=== PATIENT | female | born 1995 | race Two or more races ===

== ENCOUNTER 2017-05-03 12:35 | Emergency (ER) | payer SELFPAY ==
--- NOTE | 2017-05-03 14:06 | ER Document Report ---
HPI - HPI Patient complains to provider of: Sore throat Onset: This morning Onset/Duration: Sudden Pain Level: 3 Context: 21-year-old smoker woke up with a sore throat and white spots on her tonsils this morning. Hurts to swallow. She is a college student. Chest pain or shortness of breath, no abdominal pain. Some nausea. Associated Symptoms: None Exacerbated by: Other - Swallowing Relieved by: Denies Similar symptoms previously: No Recently seen / treated by doctor: No - ROS ROS below otherwise negative: Yes Systems Reviewed and Negative: Yes All other systems reviewed and negative Past Medical History - General Information source: Patient - Social History Smoking Status: Current Every Day Smoker Frequency of alcohol use: None Drug Abuse: None Lives with: Family Family History: Reviewed & Not Pertinent - Medical History Medical History: Negative Surgical Hx: Negative - Immunizations Immunizations up to date: Yes Vertical Provider Document - CONSTITUTIONAL Agree With Documented VS: Yes Exam Limitations: No Limitations - INFECTION CONTROL TRAVEL OUTSIDE OF THE [place] IN LAST 30 DAYS: No - HEENT HEENT: Normocephalic, Pharyngeal Erythema. negative: Conjuctival Injection, Tympanic Membrane Red Notes: Exudative tonsils, uvula midline no abscess. - NECK Neck: Supple, Lymphadenopathy-Left - Few anterior, Lymphadenopathy-Right - Few anterior - RESPIRATORY Respiratory: Breath Sounds Normal, No Respiratory Distress O2 Sat by Pulse Oximetry: 97 - CARDIOVASCULAR Cardiovascular: Regular Rate, Regular Rhythm - GI/ABDOMEN Gastrointestinal: Abdomen Soft, Abdomen Non-Tender, No Organomegaly - MUSCULOSKELETAL/EXTREMETIES Musculoskeletal/Extremeties: MAEW - NEURO Level of Consciousness: Awake, Alert - DERM Integumentary: Warm, Dry, No Rash Course - Re-evaluation Re-evalutation: 05/03/17 20:36 Late entry rapid strep is negative throat culture pending - Vital Signs Vital signs: Temp Pulse Resp BP Pulse Ox 98.5 F 117 H 16 123/69 97 05/03/17 12:41 05/03/17 12:41 05/03/17 12:41 05/03/17 12:41 05/03/17 12:41 Discharge - Discharge Clinical Impression: Exudative tonsillitis Condition: Good Disposition: HOME, SELF-CARE Instructions: Penicillin V K ([facility]), Sore Throat ([facility]), Tonsillitis ([facility]) Additional Instructions: Plenty of fluids Motrin Tylenol Return to school on Return to the emergency room if worse Penicillin for 10 days You can call for your throat culture result of the rapid strep is negative today Prescriptions: Penicillin V Potassium [Penicillin Vk 500 mg Tablet] 500 mg PO QID #40 tablet Forms: Return to School
[2017-05-03 14:42] VITALS: BP 116/74
== END 2017-05-03 15:36 | disposition home or self-care (01) ==
LOC: ER 12:35
DX: J03.90 Acute tonsillitis, unspecified (principal); R11.0 Nausea; F17.200 Nicotine dependence, unspecified, uncomplicated
CPT/HCPCS: 87070; 87880; 99283

== ENCOUNTER 2017-06-01 18:05 | Emergency (ER) | payer SELFPAY ==
[2017-06-01] MEDS ORDERED: LIDOCAINE 2% VISCOUS SOLN 20 ML UDCUP PO ONE (18:33)
[2017-06-01] MEDS ORDERED: DEXAMETHASONE SOD PHOS INJ 10 MG/1 ML VIAL IM ONE (19:15)
--- NOTE | 2017-06-01 19:16 | ER Document Report ---
HPI - HPI Pain Level: 4 Context: Patient is a 21-year-old female presents emergency department the chief complaint of sore throat. Patient states that this started over the past 2 days. States that she did have a sick contact at home. Admits to previous tonsillitis about a month ago but did not fill her prescription for antibiotics due to concern for cause. States that it resolved on its own. She denies any fevers or chills, difficulty swallowing. She admits to pain but otherwise denies any shortness of breath, difficulty breathing or cough - CONSTITUTIONAL Constitutional: DENIES: Chills - EENT EENT: REPORTS: Sore Throat Past Medical History - Social History Smoking Status: Current Every Day Smoker Chew tobacco use (# tins/day): No Drug Abuse: None Family History: Reviewed & Not Pertinent Patient has suicidal ideation: No Patient has homicidal ideation: No Renal/ Medical History: Denies: Hx Peritoneal Dialysis - Immunizations Immunizations up to date: Yes Vertical Provider Document - CONSTITUTIONAL Agree With Documented VS: Yes Notes: PHYSICAL EXAM GENERAL: Alert, interacts well. HEENT: NCAT, pale conjunctiva, extraocular movements intact, pupils PERRL. external ear normal, no evidence of external auditory canal tenderness, blood/ drainage, cerumen impaction, TM intact without evidence of effusion, bulging, injection, MMM, Uvula midline. Airway patent. Evidence of tonsillar exudate without erythema. no evidence of tonsillar enlargement, peritonsillar abscess, retropharyngeal abscess. LUNGS: Clear to auscultation bilaterally, no wheezes, rales, or rhonchi. No respiratory distress. HEART: Regular rate and rhythm. No murmurs, gallops, or rubs. NEUROLOGICAL: Alert and oriented x4. Normal speech. PSYCH: Normal affect, normal mood. SKIN: Warm, dry, normal turgor. No rashes or lesions noted. - INFECTION CONTROL TRAVEL OUTSIDE OF THE [place] IN LAST 30 DAYS: No Course - Re-evaluation Re-evalutation: Presentation is most consistent with a viral upper respiratory infection. rapid strep negative. Patient is overall well appearance, vitals within normal limits , well-hydrated. Patient denies any headache, neck pain, and has no evidence of meningismus on examination. Lungs are clear bilaterally. No evidence of respiratory distress. Based on clinical exam and history, I do not suspect an acute pneumonia, meningitis, strep pharyngitis, or an acute encephalitis. No laboratory or imaging testing is indicated at this time. Will discharge patient with return precautions and followup recommendations. They are in agreement this plan have verbalized understanding return precautions. Discharge - Discharge Clinical Impression: Sore throat (viral) Condition: Good Disposition: HOME, SELF-CARE Instructions: Acetaminophen, Sore Throat ([facility]), Viral Syndrome ([facility]) [facility]: [facility] [NO [facility]AL MD] - Follow up in 1 week
[2017-06-01 19:34] VITALS: BP 120/81
== END 2017-06-01 19:34 | disposition home or self-care (01) ==
LOC: ER 18:05
DX: J02.9 Acute pharyngitis, unspecified (principal); F17.200 Nicotine dependence, unspecified, uncomplicated
CPT/HCPCS: 99283; 96372; 87070; 87880; J3490; J1100

== ENCOUNTER 2017-07-26 01:03 | Inpatient (IN) | payer SELFPAY ==
[2017-07-26] MEDS ORDERED: DEXAMETHASONE SOD PHOS INJ 10 MG/1 ML VIAL IV ONE (02:19)
[2017-07-26] MEDS ORDERED: KETOROLAC TROMETHAMINE INJ/PF 30 MG/1 ML SDV IV ONE (02:19)
--- NOTE | 2017-07-26 02:24 | ER Document Report ---
ED ENT - General Chief Complaint: Sore Throat Stated Complaint: SORE THROAT Time Seen by Provider: 07/26/17 02:06 Notes: The patient is a 21-year-old female, past medical history seasonal allergies, multiple episodes of tonsillitis, presents with increased sore throat, right- sided facial swelling and difficulty swallowing. She said the symptoms slowly have worsened. Denies fevers, trismus or neck stiffness. TRAVEL OUTSIDE OF THE [place] IN LAST 30 DAYS: No - Related Data Allergies/Adverse Reactions: No Known Allergies Allergy (Verified 06/01/17 18:41) Past Medical History - General Information source: Patient - Social History Smoking Status: Unknown if Ever Smoked Family History: Reviewed & Not Pertinent Renal/ Medical History: Denies: Hx Peritoneal Dialysis - Immunizations Immunizations up to date: Yes Review of Systems - Review of Systems Notes: REVIEW OF SYSTEMS: CONSTITUTIONAL: -fevers, -chills EENT: -eye pain, +difficulty swallowing, -nasal congestion, +sore throat CARDIOVASCULAR: -chest pain, -syncope. RESPIRATORY: -cough, -SOB GASTROINTESTINAL: -abdominal pain, -nausea, -vomiting, -diarrhea GENITOURINARY: -dysuria, -hematuria MUSCULOSKELETAL: -back pain, -neck pain SKIN: -rash or skin lesions. HEMATOLOGIC: -easy bruising or bleeding. LYMPHATIC: +swollen, enlarged glands. NEUROLOGICAL: -altered mental status or loss of consciousness, -headache, - neurologic symptoms PSYCHIATRIC: -anxiety, -depression. ALL OTHER SYSTEMS REVIEWED AND NEGATIVE. Physical Exam - Vital signs Vitals: Temp Pulse Resp BP Pulse Ox 98.9 F 91 H 16 128/83 H 98 07/26/17 01:31 07/26/17 01:31 07/26/17 01:31 07/26/17 01:31 07/26/17 01:31 - Notes Notes: PHYSICAL EXAMINATION: GENERAL: Uncomfortable. HEAD: Atraumatic, normocephalic. EYES: Pupils equal round and reactive to light, extraocular movements intact, sclera anicteric, conjunctiva are normal. ENT: Swelling of bilateral tonsils, right side slightly larger, no discrete abscess seen, white exudate on left tonsil, nares patent. Moist mucous membranes. NECK: Normal range of motion, supple withright anterior lymphadenopathy LUNGS: Breath sounds clear to auscultation bilaterally and equal. No wheezes rales or rhonchi. HEART: Regular rate and rhythm without murmurs ABDOMEN: Soft, nontender, normoactive bowel sounds. No guarding, no rebound. No masses appreciated. EXTREMITIES: Normal range of motion, no pitting or edema. No cyanosis. NEUROLOGICAL: Cranial nerves grossly intact. Normal speech, normal gait. Normal sensory and motor exams. PSYCH: Normal mood, normal affect. SKIN: Warm, Dry, normal turgor, no rashes or lesions noted. Course - Re-evaluation Re-evalutation: Patient arrives with worsening sore throat and painful swallowing. She is able to swallow her secretions and has no trismus. CT obtained to assess for evidence of peritonsillar abscess, but just bilateral tonsillar abscesses were seen. Steroids, anti-inflammatories and antibiotics were started with some improvement of patient's symptoms. 07/26/17 05:[address] Limon (ENT) and he recommends admitting patient with Unasyn q6h, Decadron q6h and IVF. Dr. Tavares will be [employer] attendant at 8am and will evaluate patient for possible drainage. Spoke to Dr. Indra Zarco and he will admit patient to Tele for further evaluation and treatment. - Vital Signs Vital signs: Temp Pulse Resp BP Pulse Ox 98.9 F 91 H 16 128/83 H 98 07/26/17 01:31 07/26/17 01:31 07/26/17 01:31 07/26/17 01:31 07/26/17 01:31 - Laboratory Result Diagrams: 07/26/17 03:19 07/26/17 03:53 Laboratory results interpreted by me: 07/26/17 07/26/17 03:19 03:53 WBC 12.6 H Hgb 11.7 L Hct 35.0 L RDW 15.2 H Seg Neutrophils % 83.9 H Lymphocytes % 7.7 L Absolute Neutrophils 10.6 H Carbon Dioxide 21 L - Diagnostic Test Radiology reviewed: Image reviewed, Reports reviewed Radiology results interpreted by me: CT Soft tissue: Multilobulated fluid collection within an enlarged right palatine tonsil measuring 2.2 x 1.3 x 1.9 cm (Transverse x AP x CC), best seen on image 35 series 2. Smaller ill-defined fluid collection within the left palatine tonsil image 37 measuring measuring 1.2 x 1.2 x 1.3 cm (Transverse x AP x CC). Discharge - Discharge Clinical Impression: Tonsillar abscess Condition: Stable Disposition: ADMITTED INPATIENT Admitting Provider: Merline [facility] Unit Admitted: Telemetry
[2017-07-26 03:31] LABS: ABSOLUTE EOSINOPHILS # (AUTO) 0.1 10^3/uL (0.0-0.6); ABSOLUTE NEUT (AUTO) 10.6 10^3/uL (1.7-8.2); BASOPHILS % (AUTO) 0.2 % (0-2); EOSINOPHILS % (AUTO) 0.5 % (0-6); HEMOGLOBIN 11.7 g/dL (12.0-15.5); LYMPHOCYTES % (AUTO) 7.7 % (13-45); MEAN CORPUSCULAR HEMOGLOBIN 27.8 pg (27.0-33.4); MEAN CORPUSCULAR HGB CONC 33.5 g/dL (32.0-36.0); MEAN CORPUSCULAR VOLUME 83 fl (80-97); MONOCYTES % (AUTO) 7.7 % (3-13); PLATELET COUNT 287 10^3/uL (150-450); RED CELL DISTRIBUTION WIDTH 15.2 % (11.5-14.0); SEGMENTED NEUTROPHILS % (AUTO) 83.9 % (42-78); TOTAL CELLS COUNTED % (AUTO) 100 %; WHITE BLOOD COUNT 12.6 10^3/uL (4.0-10.5)
[2017-07-26] MEDS ORDERED: HYDROMORPHONE HCL INJ/PF 2 MG/ML AMPULE IV ONE (03:35)
[2017-07-26] MEDS ORDERED: LIDOCAINE 2% INJ-PF (20 MG/ML) 10 ML AMPUL NEB ONE (03:38)
[2017-07-26] MEDS: NORMAL SALINE 1000 ML 1,000 ML IV PRN ×2 (03:53→06:00)
--- NOTE | 2017-07-26 04:02 | RADIOLOGY REPORT (SQ) ---
EXAM DATE: 07/26/2017 2:18 AM CDT. PROCEDURE: CT NECK CHEST WITH IV CONTRAST. INDICATION: asymptomatic throat swelling, SOLUTIONS DEVELOPER?. COMPARISON: None. TECHNIQUE: Axial CT images of the neck were obtained after administration of intravenous contrast. Coronal and sagittal reformats were also obtained. This exam was performed according to our departmental dose-optimization program which includes use of Automated Exposure Control, adjustment of the mA and/or kV according to patient size and/or use of iterative reconstruction technique. FINDINGS: Multilobulated fluid collection within an enlarged right palatine tonsil measuring 2.2 x 1.3 x 1.9 cm (Transverse x AP x CC), best seen on image 35 series 2. Smaller ill-defined fluid collection within the left palatine tonsil image 37 measuring measuring 1.2 x 1.2 x 1.3 cm (Transverse x AP x CC) . Lingual tonsils are unremarkable. Mildly enlarged adenoid tonsils. Remainder of the aerodigestive tract is unremarkable. Partially visualized brain demonstrates no significant abnormalities. Patent major neck vessels. Unremarkable orbits. Mild mucosal thickening right-sided ethmoid air cells. Mastoid air cells are clear. Bilateral level two lymphadenopathy. Lung apices are clear. No acute osseous abnormality. IMPRESSION: Lobulated fluid collections within both palatine tonsils, right greater than left, concerning for tonsillar abscesses. Mild lymphadenopathy is likely reactive.
[2017-07-26] MEDS ORDERED: CLINDAMYCIN 600 MG/D5W RTU 600 MG/50 ML RTUPB IV ONE (04:10)
[2017-07-26 04:20] LABS: ALANINE AMINOTRANSFERASE 19 U/L (5-35); ALBUMIN 3.8 g/dL (3.7-5.6); ALKALINE PHOSPHATASE 82 U/L (50-135); ANION GAP 16 (5-19); ASPARTATE AMINO TRANSFERASE 15 U/L (5-30); BILIRUBIN,DIRECT 0.4 mg/dL (0.0-0.4); BILIRUBIN,TOTAL 0.4 mg/dL (0.2-1.3); BLOOD UREA NITROGEN 10 mg/dL (7-20); CALCIUM 9.1 mg/dL (8.4-10.2); CARBON DIOXIDE 21 mmol/L (22-30); CHLORIDE 107 mmol/L (98-107); GLUCOSE 89 mg/dL (75-110); POTASSIUM 3.9 mmol/L (3.6-5.0); SODIUM 143.5 mmol/L (137-145); TOTAL PROTEIN 7.2 g/dL (6.3-8.2)
[2017-07-26] MEDS ORDERED: NORMAL SALINE 1000 ML 1,000 ML IV ONE (05:19)
[2017-07-26] MEDS ORDERED: AMPICILLIN SOD/SULBACTAM 3 GM VIAL IV SCH (05:30)
[2017-07-26] MEDS: DEXAMETHASONE SOD PHOS INJ 10 MG/1 ML VIAL IV SCH ×3 (06:00→22:13)
[2017-07-26] MEDS ORDERED: GLUCAGON,HUMAN RECOMB 1 MG INJ SUBCUT PRN (07:46)
[2017-07-26] MEDS ORDERED: DEXTROSE 40% GEL 15 GM TUBE PO PRN ×2 (07:46)
[2017-07-26] MEDS ORDERED: DEXTROSE 50%-WATER 25 GM/50 ML DISP.SYRIN IV PRN ×2 (07:46)
--- NOTE | 2017-07-26 07:59 | PDOC H&P ---
History of Present Illness Admission Date/PCP: 07/26/17 05:27 Patient complains of: Severe sore throat fever and chills History of Present Illness: JOSE CRUZ CONNELLY is a 21 year old female who was well until about 4 days ago when she developed a sore throat This morning she could not swallow; patient was evaluated in the ED CT of the neck with IV contrast was suggestive of tonsillar abscess ENT consult was obtained over the phone Patient's treatment was initiated with clindamycin Unasyn was added, Patient was subsequently admitted on the hospitalist service with ENT consult for further evaluation and care Past Medical History Medical History: None Past Surgical History Past Surgical History: Reports: None Social History Information Source: Patient Lives with: Family Smoking Status: Current Every Day Smoker Frequency of Alcohol Use: None Hx Recreational Drug Use: No - Advance Directive Resuscitation Status: Full Code Surrogate healthcare decision maker:: Her mother Jose Cruz Family History Family History: None Family History: No significant medical illnesses everyone is healthy Parental Family History Reviewed: Yes Children Family History Reviewed: Yes Sibling(s) Family History Reviewed.: Yes Medication/Allergy Home Medications: No Home Medications 06/01/17 Allergies/Adverse Reactions: No Known Allergies Allergy (Verified 06/01/17 18:41) Review of Systems Constitutional: PRESENT: as per HPI Eyes: ABSENT: visual disturbances Ears: ABSENT: hearing changes Nose, Mouth, and Throat: PRESENT: as per HPI, sore throat Cardiovascular: ABSENT: chest pain, dyspnea on exertion, palpitations Respiratory: ABSENT: cough, dyspnea, sputum Gastrointestinal: ABSENT: abdominal pain, dysphagia, nausea, vomiting Integumentary: ABSENT: pruritus, rash Neurological: ABSENT: abnormal gait, focal weakness, syncope Psychiatric: ABSENT: anxiety, depression Endocrine: ABSENT: cold intolerance Hematologic/Lymphatic: ABSENT: easy bleeding Allergic/Immunologic: PRESENT: seasonal rhinorrhea Physical Exam Vital Signs: Temp Pulse Resp BP Pulse Ox 98.4 F 89 18 101/59 L 95 07/26/17 06:29 07/26/17 06:29 07/26/17 02:15 07/26/17 06:29 07/26/17 06:29 General appearance: PRESENT: mild distress, well-developed, well-nourished Head exam: PRESENT: atraumatic, normocephalic Eye exam: PRESENT: conjunctiva pink, EOMI, PERRLA. ABSENT: scleral icterus Ear exam: PRESENT: normal external ear exam Mouth exam: PRESENT: moist, tongue midline Throat exam: PRESENT: post pharyngeal erythema, other - Posterior pharynx difficult to evaluate as the patient cannot fully open her mouth Neck exam: PRESENT: tenderness, other - Submandible to adenopathies large tender on palpation bilateral. ABSENT: carotid bruit, JVD, lymphadenopathy, thyromegaly Respiratory exam: PRESENT: clear to auscultation amado. ABSENT: rales, rhonchi, wheezes Cardiovascular exam: PRESENT: RRR. ABSENT: diastolic murmur, rubs, systolic murmur Pulses: PRESENT: normal dorsalis pedis pul Vascular exam: PRESENT: normal capillary refill GI/Abdominal exam: PRESENT: normal bowel sounds, soft. ABSENT: distended, guarding, mass, organolmegaly, rebound, tenderness Rectal exam: PRESENT: deferred Extremities exam: PRESENT: full ROM. ABSENT: calf tenderness, clubbing, pedal edema Neurological exam: PRESENT: alert, awake, oriented to person, oriented to place , oriented to time, oriented to situation, CN II-XII grossly intact. ABSENT: motor sensory deficit Psychiatric exam: PRESENT: appropriate affect, normal mood. ABSENT: homicidal ideation, suicidal ideation Skin exam: PRESENT: dry, intact, warm. ABSENT: cyanosis, rash Results Impressions: Soft Tissue Neck CT 07/26/17 02:18 IMPRESSION: Lobulated fluid collections within both palatine tonsils, right greater than left, concerning for tonsillar abscesses. Mild lymphadenopathy is likely reactive. Assessment & Plan - Diagnosis (1) Tonsillar abscess Is this a current diagnosis for this admission?: Yes Plan: We will continue Unasyn Add vancomycin to cover MRSA ENT consult was obtained by ED physician We will keep the patient n.p.o. on IV fluids as she may very well go to the OR for drainage of tonsillar abscess Continue antibiotics Continue Toradol for pain - Time Time Spent: 30 to 50 Minutes
[2017-07-26] MEDS ORDERED: VANCOMYCIN HCL 0 MG in DEXTROSE 5%-WATER 250 ML IV NR (08:00)
[2017-07-26] MEDS ORDERED: KETOROLAC TROMETHAMINE INJ/PF 30 MG/1 ML SDV IV PRN ×2 (08:00→12:00)
[2017-07-26] MEDS ORDERED: AMPICILLIN SOD/SULBACTAM 3 GM VIAL IV ONE ×2 (08:00→09:00)
[2017-07-26] MEDS ORDERED: MORPHINE SULFATE 10 MG/ML INJ IV PRN ×2 (08:01→20:00)
[2017-07-26] MEDS: DEXTROSE 5%-NORMAL SALINE 1,000 ML IV PRN ×2 (08:59→20:02)
--- NOTE | 2017-07-26 09:37 | Progress Note ---
Provider Note Provider Note: Spoke with Dr. Rossy Blair will be in later this evening to I&D tonsillar abscess at the bedside He advises full liquids until 2 PM Then n.p.o. Continue present antibiotics
[2017-07-26] MEDS: FAMOTIDINE INJ/PF 20 MG/2 ML SDV IV SCH ×2 (10:23→22:13)
[2017-07-26] MEDS: AMPICILLIN SODIUM/SULBACTAM NA 3 GM in NORMAL SALINE 100 ML IV SCH ×3 (11:54→23:34)
[2017-07-26] MEDS ORDERED: VANCOMYCIN HCL 1,500 MG in DEXTROSE 5%-WATER 250 ML IV SCH (13:00)
[2017-07-26] MEDS ORDERED: BUPIVACAINE HCL 0.5%-EPI 1:200000 INJ/PF 30 ML VIAL INJ PRN (15:03)
[2017-07-26] MEDS ORDERED: DIPHENHYDRAMINE HCL 50 MG/ML VIAL IV ONE (16:00)
[2017-07-26] MEDS ORDERED: MORPHINE SULFATE 10 MG/ML INJ IV ONE (20:15)
--- NOTE | 2017-07-26 21:10 | CONSULTATION REPORT E ---
Consultation Report NAME: FABIOLA CONNELLY : 1995 AGE: 21Y DATE: 07/26/2017 209 A TO: KORI TAVARES D.O. FROM: FREDI OCONNELL M.D. Requesting Physician REASON FOR CONSULTATION: Hospitalist consult request for ENT evaluation of 21-year-old female with acute tonsillitis and tonsillar abscess as identified on CT neck imaging. HISTORY OF PRESENT ILLNESS: This is a 21-year-old female patient who was seen and evaluated in the [facility] ER overnight and admitted to the hospital by the hospitalist service in the morning for acute tonsillitis with worsening sore throat symptoms over the past week. The patient underwent CT neck imaging with contrast while in the ER and there was a call for a right greater than left peritonsillar/tonsillar abscess process. The patient was administered IV antibiotics and steroids and was admitted to the inpatient service. The patient was already improving after IV fluids, antibiotics, and steroids. There has been no shortness of breath or difficulty breathing. The patient reports a history of acute recurrent tonsillitis requiring antibiotics 2 times within the past 2 months and this third time has been, by far, the worst. PAST MEDICAL HISTORY: Same as above. PAST SURGICAL HISTORY: None. SOCIAL HISTORY: The patient currently smokes on a daily basis. FAMILY HISTORY: No significant areas of concern. MEDICATIONS: No home medications. ALLERGIES: No known drug allergies. REVIEW OF SYSTEMS: CONSTITUTIONAL: Same as above. GENERAL: Same as above. EYES: Unremarkable. EARS: Unremarkable. NOSE, MOUTH AND THROAT: Same as above. CARDIOVASCULAR: Unremarkable. RESPIRATORY: Unremarkable. GASTROINTESTINAL: Unremarkable. SKIN: Unremarkable. NEUROLOGICAL: Unremarkable. ENDOCRINE: Patient with cold intolerance with thyroid workup in progress. HEMATOLOGIC/LYMPHATIC: Unremarkable. ALLERGIC/IMMUNOLOGIC: Patient is with history of numerous allergens, both seasonal and environmental. PHYSICAL EXAMINATION: VITAL SIGNS: Patient is afebrile and with stable vitals and oxygen saturation is in the high 90s on room air. HEAD: Normocephalic, atraumatic. EYES: Extraocular muscles are intact and the conjunctivae are unremarkable. NOSE: With nasal septal deviation and turbinate hypertrophy. MOUTH/ORAL CAVITY: With moist mucous membranes and there is no trismus noted. OROPHARYNX: Patient is with bilateral tonsillar hypertrophy, 3-4+ on the left and 4+ on the right. There are changes on the right concerning for a paratonsillar abscess type process. There is no exudate or purulent noted. There is no tonsillar debris present. NECK: The patient is with enlarged lymphadenopathy which is tender to palpation on the right in the area of the upper neck. LYMPHATICS: Same as above. HEART: Regular rate and rhythm without murmur. LUNGS: Clear to auscultation bilateral. NEUROLOGICAL: Cranial nerves II through XII are grossly intact. The patient is alert and oriented and in no apparent distress. SKIN: Unremarkable in appearance. MUSCULOSKELETAL: No trismus is noted and no TMJ discomfort. LABORATORY: White count greater than 12. RADIOLOGY: CT neck with contrast performed on 07/26/2017 at 2:18 a.m. was reported multi-lobulated fluid collection on the right with enlarged right tonsil and a smaller ill-defined fluid collection within the left tonsil. PROCEDURE PERFORMED: The patient was counseled regarding a right paratonsillar/tonsillar incision and drainage. The risks and complications of the procedures as well as the alternatives and benefits of this type of procedure were discussed in detail. The patient voiced an understanding of the described plan for abscess incision and drainage. After informed consent and admission of right peritonsillar and tonsil Marcaine with epinephrine for local anesthetic, needle aspiration was attempted at multiple locations with approximately 1 mL of purulence aspirated. There was adequate hemostasis noted at the end of the procedure. There were no complications. ASSESSMENT: 1. Acute tonsillitis. 2. Right greater than left tonsil/peritonsillar phlegmon inflammatory change more so than well localized abscess formation. PLAN: 1. The patient is status post a right peritonsillar/tonsillar incision and drainage procedure with limited purulence aspirated. 2. The patient will continue to be managed by the hospitalist service overnight with plan for continued IV antibiotics and steroids. This case has been discussed with the hospitalist staff. 3. The patient can follow up in the [facility] office which both she and her mother voiced an understanding of and desire to do so. 4. Dr. Tavares remains available as needed. DICTATING PHYSICIAN: KORI TAVARES D.O. [id number] PHY#: [id number] ID: [id number] JOB#: [id number] ACCT: [id number] cc:KORI TAVARES D.O. >
[2017-07-27] MEDS: DEXTROSE 5%-NORMAL SALINE 1,000 ML IV PRN (03:05)
[2017-07-27] MEDS ORDERED: ONDANSETRON HCL INJ/PF 4 MG/2 ML SDV IV PRN (04:04)
[2017-07-27] MEDS: AMPICILLIN SODIUM/SULBACTAM NA 3 GM in NORMAL SALINE 100 ML IV SCH (05:36)
[2017-07-27] MEDS: DEXAMETHASONE SOD PHOS INJ 10 MG/1 ML VIAL IV SCH (05:36)
[2017-07-27 06:58] LABS: HEMATOCRIT 34.3 % (36.0-47.0); HEMOGLOBIN 11.1 g/dL (12.0-15.5); MEAN CORPUSCULAR HEMOGLOBIN 27.1 pg (27.0-33.4); MEAN CORPUSCULAR HGB CONC 32.4 g/dL (32.0-36.0); MEAN CORPUSCULAR VOLUME 84 fl (80-97); PLATELET COUNT 301 10^3/uL (150-450); RED BLOOD COUNT 4.11 10^6/uL (3.72-5.28)
[2017-07-27 07:12] LABS: ANION GAP 15 (5-19); BLOOD UREA NITROGEN 6 mg/dL (7-20); CARBON DIOXIDE 18 mmol/L (22-30); CHLORIDE 113 mmol/L (98-107); GLUCOSE 222 mg/dL (75-110); POTASSIUM 4.2 mmol/L (3.6-5.0); SODIUM 145.8 mmol/L (137-145)
[2017-07-27 07:17] LABS: ABSOLUTE LYMPHOCYTES# (MANUAL) 0.5 10^3/uL (0.5-4.7); ABSOLUTE MONOCYTES # (MANUAL) 0.4 10^3/uL (0.1-1.4); ABSOLUTE NEUTROPHILS# (MANUAL) 11.2 10^3/uL (1.7-8.2); BAND NEUTROPHILS % (MANUAL) 1 % (3-5); BASOPHILS % (MANUAL) 0 % (0-2); EOSINOPHILS % (MANUAL) 0 % (0-6); LYMPHOCYTES % (MANUAL) 4 % (13-45); MONOCYTES % (MANUAL) 3 % (3-13); SEGMENTED NEUTROPHILS % (MAN) 92 % (42-78); TOTAL CELLS COUNTED 100
[2017-07-27 07:19] LABS: ANISOCYTOSIS SLIGHT; OVALOCYTES SLIGHT; PLATELET COMMENT ADEQUATE; POIKILOCYTOSIS SLIGHT; TOXIC VACUOLATION PRESENT
[2017-07-27 08:20] VITALS: BP 106/53
--- NOTE | 2017-07-27 13:34 | PDOC DISCHARGE SUMMARY ---
General - Admit/Disc Date/PCP Admission Date/Primary Care Provider: 07/26/17 05:27 Discharge Date: 07/27/17 - Discharge Diagnosis (1) Tonsillar abscess Is this a current diagnosis for this admission?: Yes - Additional Information Resuscitation Status: Full Code Discharge Diet: As Tolerated Discharge Activity: Activity As Tolerated Prescriptions: Clindamycin HCl 300 mg PO TID #30 capsule Home Medications: Fluoxetine HCl [Prozac 20 mg Capsule] 20 mg PO DAILY 07/26/17 Clindamycin HCl 300 mg PO TID #30 capsule 07/27/17 History of Present Illness Patient complains of: Sore throat. hoarseness of voice. Dysphagia History of Present Illness: FABIOLA CONNELLY is a 21 year old female who was well until about 4 days ago when she developed a sore throat This morning she could not swallow; patient was evaluated in the ED CT of the neck with IV contrast was suggestive of tonsillar abscess ENT consult was obtained over the phone Patient's treatment was initiated with clindamycin Unasyn was added, Patient was subsequently admitted on the hospitalist service with ENT consult for further evaluation and care Hospital Course Hospital Course: Right tonsillar peritonsillar abscess Patient was treated with Unasyn, Decadron and vancomycin IV Allergic reaction to vancomycin which was discontinued Patient underwent I&D of the abscess - Dr Anusha JAMISON- With improvement of the dysphagia She was discharged home on clindamycin p.o. after 24 hours of hospitalization Physical Exam Vital Signs: Temp Pulse Resp BP Pulse Ox 98.4 F 74 18 108/54 L 98 07/27/17 08:09 07/27/17 08:09 07/27/17 08:09 07/27/17 08:09 07/27/17 08:09 Intake & Output 07/26/17 07/27/17 07/28/17 00:59 00:59 00:59 Intake Total 1180 2540 Balance 1180 2540 Weight 95.1 kg General appearance: PRESENT: mild distress, well-developed, well-nourished Head exam: PRESENT: atraumatic, normocephalic Eye exam: PRESENT: conjunctiva pink, EOMI, PERRLA. ABSENT: scleral icterus Ear exam: PRESENT: normal external ear exam Mouth exam: PRESENT: moist, tongue midline Throat exam: PRESENT: post pharyngeal erythema, other - Posterior pharynx difficult to evaluate as the patient cannot fully open her mouth Neck exam: PRESENT: tenderness, other - Submandible to adenopathies large tender on palpation bilateral. ABSENT: carotid bruit, JVD, lymphadenopathy, thyromegaly Respiratory exam: PRESENT: clear to auscultation amado. ABSENT: rales, rhonchi, wheezes Cardiovascular exam: PRESENT: RRR. ABSENT: diastolic murmur, rubs, systolic murmur Pulses: PRESENT: normal dorsalis pedis pul Vascular exam: PRESENT: normal capillary refill GI/Abdominal exam: PRESENT: normal bowel sounds, soft. ABSENT: distended, guarding, mass, organolmegaly, rebound, tenderness Rectal exam: PRESENT: deferred Extremities exam: PRESENT: full ROM. ABSENT: calf tenderness, clubbing, pedal edema Neurological exam: PRESENT: alert, awake, oriented to person, oriented to place , oriented to time, oriented to situation, CN II-XII grossly intact. ABSENT: motor sensory deficit Psychiatric exam: PRESENT: appropriate affect, normal mood. ABSENT: homicidal ideation, suicidal ideation Skin exam: PRESENT: dry, intact, warm. ABSENT: cyanosis, rash Results Laboratory Results: 07/27/17 06:24 07/27/17 06:24 07/27/17 07/27/17 06:24 06:24 WBC 12.0 H RBC 4.11 Hgb 11.1 L Hct 34.3 L MCV 84 MCH 27.1 MCHC 32.4 RDW 15.0 H Plt Count 301 Seg Neutrophils % Not Reportable Lymphocytes % Not Reportable Monocytes % Not Reportable Eosinophils % Not Reportable Basophils % Not Reportable Absolute Neutrophils Not Reportable Absolute Lymphocytes Not Reportable Absolute Monocytes Not Reportable Absolute Eosinophils Not Reportable Absolute Basophils Not Reportable Sodium 145.8 H Potassium 4.2 Chloride 113 H Carbon Dioxide 18 L Anion Gap 15 BUN 6 L Creatinine 0.42 L Est GFR ( Amer) > 60 Est GFR (Non-Af Amer) > 60 Glucose 222 H Calcium 9.0 Impressions: Soft Tissue Neck CT 07/26/17 02:18 IMPRESSION: Lobulated fluid collections within both palatine tonsils, right greater than left, concerning for tonsillar abscesses. Mild lymphadenopathy is likely reactive. Qualifiers - * PATIENT BEING DISCHARGED WITH ANY OF THE FOLLOWING DIAGNOSIS: No Plan Discharge Plan: Discharge home Follow up with Dr. Tavares as an outpatient in about a week Time Spent: Greater than 30 Minutes
== END 2017-07-27 08:34 | disposition home or self-care (01) | DRG 134 ==
LOC: ER 01:03 → EH 05:27 → 2N 10:39
PROVIDERS: ADMIT Internal Medicine; ATTEND Internal Medicine
PROC: 0C9PXZZ Drainage of Tonsils, External Approach (ICD-10-PCS; principal; 2017-07-26)
DX: J03.91 Acute recurrent tonsillitis, unspecified (principal); F17.200 Nicotine dependence, unspecified, uncomplicated; R13.10 Dysphagia, unspecified
CPT/HCPCS: 36415; 70491; 80048; 80053; 85025; 86308; 87070; 87880; 96361; 96365; 96375; 99284; J0295; J1100; J1200; J1885; J2270; J3370; J7030; J7060; S0028

== ENCOUNTER 2017-09-05 11:38 | Emergency (ER) | payer MEDICAID ==
[2017-09-05] MEDS ORDERED: METOCLOPRAMIDE HCL INJ/PF 10 MG/2 ML SDV IV ONE ×2 (11:55→16:18)
--- NOTE | 2017-09-05 11:58 | ER Document Report ---
ED Medical Screen (RME) - General Chief Complaint: Vomiting/Diarrhea Stated Complaint: BACK PAIN,VOMITING Time Seen by Provider: 09/05/17 11:51 Notes: RAPID MEDICAL EVALUATION DISCLOSURE I have seen this patient as part of a Rapid Medical Evaluation and, if applicable, placed any initially appropriate orders. The patient will be seen and fully evaluated, including a full history and physical exam, by a provider ( in Main ED or Fast Track) when a room becomes available. 21-year-old female here with complaints of nausea vomiting diarrhea LLQ abdominal pain that started early this morning. The pain radiates from the left lower abdomen straight through to the back. The pain is not worse or improved with anything in particular. She has not tried anything for the symptoms. She does not know of any sick contacts. Does not have any fevers chills dysuria hematuria frequency. EXAM CTAB RRR No Appreciable Abdominal TTP TRAVEL OUTSIDE OF THE [place].S. IN LAST 30 DAYS: No - Related Data Allergies/Adverse Reactions: vancomycin Allergy (Verified 09/05/17 11:41) Past Medical History Renal/ Medical History: Denies: Hx Peritoneal Dialysis Psychiatric Medical History: Reports: Hx Depression - on prozac - Immunizations Immunizations up to date: Yes History of Influenza Vaccine for 11/2016 - 04/2017 Season: Unknown Physical Exam - Vital signs Vitals: Temp Pulse Resp BP Pulse Ox 98.9 F 80 18 128/92 H 99 09/05/17 11:49 09/05/17 11:49 09/05/17 11:49 09/05/17 11:49 09/05/17 11:49 Course - Vital Signs Vital signs: Temp Pulse Resp BP Pulse Ox 98.9 F 80 18 128/92 H 99 09/05/17 11:49 09/05/17 11:49 09/05/17 11:49 09/05/17 11:49 09/05/17 11:49
[2017-09-05 12:39] LABS: ABSOLUTE EOSINOPHILS # (AUTO) 0.1 10^3/uL (0.0-0.6); ABSOLUTE MONOCYTES (AUTO) 0.4 10^3/uL (0.1-1.4); ABSOLUTE NEUT (AUTO) 4.8 10^3/uL (1.7-8.2); BASOPHILS % (AUTO) 0.4 % (0-2); EOSINOPHILS % (AUTO) 1.4 % (0-6); HEMATOCRIT 36.7 % (36.0-47.0); HEMOGLOBIN 12.3 g/dL (12.0-15.5); LYMPHOCYTES % (AUTO) 16.1 % (13-45); MEAN CORPUSCULAR HEMOGLOBIN 27.6 pg (27.0-33.4); MEAN CORPUSCULAR HGB CONC 33.4 g/dL (32.0-36.0); MEAN CORPUSCULAR VOLUME 83 fl (80-97); MONOCYTES % (AUTO) 5.8 % (3-13); PLATELET COUNT 302 10^3/uL (150-450); RED BLOOD COUNT 4.44 10^6/uL (3.72-5.28); RED CELL DISTRIBUTION WIDTH 15.4 % (11.5-14.0); SEGMENTED NEUTROPHILS % (AUTO) 76.3 % (42-78); TOTAL CELLS COUNTED % (AUTO) 100 %; WHITE BLOOD COUNT 6.3 10^3/uL (4.0-10.5)
[2017-09-05] MEDS ORDERED: PROMETHAZINE HCL INJ 25 MG/1 ML VIAL IV ONE (13:03)
[2017-09-05] MEDS ORDERED: MORPHINE SULFATE 10 MG/ML INJ IV ONE (13:04)
[2017-09-05] MEDS ORDERED: NORMAL SALINE 1000 ML 1,000 ML IV ONE ×2 (13:04→17:37)
[2017-09-05 13:06] LABS: ALANINE AMINOTRANSFERASE 24 U/L (5-35); ALBUMIN 4.2 g/dL (3.7-5.6); ALKALINE PHOSPHATASE 70 U/L (50-135); ANION GAP 12 (5-19); ASPARTATE AMINO TRANSFERASE 27 U/L (5-30); BILIRUBIN,DIRECT 0.4 mg/dL (0.0-0.4); BILIRUBIN,TOTAL 0.4 mg/dL (0.2-1.3); BLOOD UREA NITROGEN 11 mg/dL (7-20); CALCIUM 9.1 mg/dL (8.4-10.2); CARBON DIOXIDE 22 mmol/L (22-30); CHLORIDE 110 mmol/L (98-107); GLUCOSE 93 mg/dL (75-110); LIPASE 61.4 U/L (23-300); POTASSIUM 4.3 mmol/L (3.6-5.0); SODIUM 143.5 mmol/L (137-145); TOTAL PROTEIN 7.8 g/dL (6.3-8.2)
[2017-09-05 13:49] LABS: APPEARANCE,URINE CLOUDY; BILIRUBIN,URINE NEGATIVE (NEGATIVE); GLUCOSE, URINE NEGATIVE (NEGATIVE); KETONES,URINE NEGATIVE (NEGATIVE); LEUKOCYTE ESTERASE,URINE MODERATE (NEGATIVE); NITRITE,URINE NEGATIVE (NEGATIVE); PROTEIN,URINE 100 mg/dL (NEGATIVE); URINE SPECIFIC GRAVITY 1.024
[2017-09-05 13:50] LABS: COLOR,URINE DARK YELLOW
[2017-09-05] MEDS ORDERED: CEFTRIAXONE INJ 1000 MG VIAL IV ONE (14:12)
--- NOTE | 2017-09-05 14:46 | RADIOLOGY REPORT (SQ) ---
EXAM DESCRIPTION: CT LTD RENAL STONE PROTOCOL ON COMPLETED DATE/TIME: 09/05/2017 2:16 pm REASON FOR STUDY: left flank pain, uti, n/v COMPARISON: None. TECHNIQUE: CT scan of the abdomen and pelvis performed without intravenous or oral contrast. Images reviewed with lung, soft tissue, and bone windows. Reconstructed coronal and sagittal MPR images revi ewed. All images stored on PACS. All CT scanners at this facility use dose modulation, iterative reconstruction, and/or weight based d osing when appropriate to reduce radiation dose to as low as reasonably achievable (ALARA). [facility]: Dose Right [facility]: CareDose [facility]: Dose Right [facility]: Teradose 4D [facility]: Smart [employer] RADIATION DOSE: CT Rad equipment meets quality standard of care and radiation dose reduction techniq ues were employed. CTDIvol: 11.4 mGy. DLP: 648 mGy-cm.mGy. LIMITATIONS: None. FINDINGS: A 7 mm stone is present in the left ureteropelvic junction, best shown on coronal image 39 and axial image 40. There is moderate left hydronephrosis. Remainder of the left collecting system is nondilated. Elsewhere in the left kidney, multiple 1 to 2 mm upper mid and lower pole calculi are present. No le ft renal masses or cysts. LOWER CHEST: No significant findings. No nodules or infiltrates. NON-CONTRASTED LIVER, SPLEEN, ADRENALS: Evaluation limited by lack of IV contrast. No identified sign ificant masses. PANCREAS: No masses. No peripancreatic inflammatory changes. GALLBLADDER: No identified stones by CT criteria. No inflammatory changes to suggest cholecystitis. RIGHT KIDNEY AND URETER: No suspicious masses. Assessment limited by lack of IV contrast. No signif icant calcifications. No hydronephrosis or hydroureter. LEFT KIDNEY AND URETER: As above AORTA AND RETROPERITONEUM: No aneurysm. No retroperitoneal masses or adenopathy. BOWEL AND PERITONEAL CAVITY: No obvious masses or inflammatory changes. No free fluid. APPENDIX: Normal. PELVIS, BLADDER, AND ABDOMINAL WALL:No abnormal masses. No free fluid. Bladder normal. BONES: No significant findings. OTHER: No other significant finding. IMPRESSION: 7 mm stone in the left ureteropelvic junction causing moderate left hydronephrosis. COMMENT: Quality ID # [id number]: Final reports with documentation of one or more dose reduction techniques (e.g., Automated exposure control, adjustment of the mA and/or kV according to patient size, use of iterative reconstruction technique) TECHNICAL DOCUMENTATION: JOB ID: [id number] [employer]- All Rights Reserved Reading location - IP/workstation name: [facility]-[email or web address]
--- NOTE | 2017-09-05 15:07 | ER Document Report ---
ED GI/ - General Mode of Arrival: Ambulatory Information source: Patient, Relative TRAVEL OUTSIDE OF THE U.S. IN LAST 30 DAYS: No <PILAR GOLDMAN - Last Filed: 09/05/17 18:40> <PAULETTE SANCHEZ - Last Filed: 09/05/17 20:47> - General Chief Complaint: Vomiting/Diarrhea Stated Complaint: BACK PAIN,VOMITING Time Seen by Provider: 09/05/17 11:51 Notes: Patient is a 21-year-old female with no history of kidney stones or ovarian cysts who presents to the ER today for left flank pain radiating around to the left lower quadrant that started just prior to arrival. Patient admits to multiple episodes of nausea and vomiting as well as a few episodes of diarrhea today after the pain began. Patient denies any burning with urination, blood in her urine. She states she has never had sexual intercourse and cannot be . She denies any abnormal vaginal discharge. (PILAR GOLDMAN) - Related Data Allergies/Adverse Reactions: vancomycin Allergy (Verified 09/05/17 11:56) Past Medical History - General Information source: Patient, Parent - Social History Smoking Status: Current Every Day Smoker Chew tobacco use (# tins/day): No Frequency of alcohol use: None Drug Abuse: None Family History: None Patient has suicidal ideation: No Patient has homicidal ideation: No Renal/ Medical History: Denies: Hx Peritoneal Dialysis Psychiatric Medical History: Reports: Hx Depression - on prozac - Immunizations Immunizations up to date: Yes <PILAR GOLDMAN - Last Filed: 09/05/17 18:40> Review of Systems - Review of Systems Constitutional: No symptoms reported EENT: No symptoms reported Cardiovascular: No symptoms reported Respiratory: No symptoms reported Gastrointestinal: See HPI Genitourinary: No symptoms reported Female Genitourinary: No symptoms reported Musculoskeletal: No symptoms reported Skin: No symptoms reported Hematologic/Lymphatic: No symptoms reported Neurological/Psychological: No symptoms reported <PILAR GOLDMAN - Last Filed: 09/05/17 18:40> Physical Exam <PILAR GOLDMAN - Last Filed: 09/05/17 18:40> <PAULETTE SANCHEZ - Last Filed: 09/05/17 20:47> - Vital signs Vitals: Temp Pulse Resp BP Pulse Ox 98.9 F 80 18 128/92 H 99 09/05/17 11:49 09/05/17 11:49 09/05/17 11:49 09/05/17 11:49 09/05/17 11:49 - Notes Notes: PHYSICAL EXAMINATION: GENERAL: Obviously in pain, holding left flank and actively vomiting, and mild acute distress HEAD: Atraumatic, normocephalic. EYES: Pupils equal round and reactive to light, extraocular movements intact, sclera anicteric, conjunctiva are normal. NECK: Normal range of motion, supple without lymphadenopathy LUNGS: CTAB and equal. No wheezes rales or rhonchi. HEART: Regular rate and rhythm without murmurs ABDOMEN: Soft, mild left lower quadrant and suprapubic tenderness. No guarding, no rebound BACK: no vertebral tenderness, normal ROM GI/: Left CVA tenderness EXTREMITIES: Normal range of motion, no pitting edema. No cyanosis. NEUROLOGICAL: Cranial nerves grossly intact. Normal sensory/motor exams. PSYCH: Normal mood, normal affect. SKIN: Warm, Dry, normal turgor, no rashes or lesions noted (PILAR GOLDMAN) Course - Laboratory Result Diagrams: 09/05/17 12:23 09/05/17 12:23 <PILAR GOLDMAN - Last Filed: 09/05/17 18:40> - Laboratory Result Diagrams: 09/05/17 12:23 09/05/17 12:23 <PAULETTE SANCHEZ - Last Filed: 09/05/17 20:47> - Re-evaluation Re-evalutation: 09/05/17 16:28 Patient has 7 mm stone at the ureteropelvic junction with moderate hydronephrosis of the left kidney, urinalysis reveals 61 white blood cells and large blood. He has taken multiple doses of narcotic pain medication and nausea medication to get patient comfortable. Dr. Zarco, urologist from [facility] would not allow me to consult with him, stating "don't even call me if this isn't a catheterized urine" after finding out I got a clean catch on this 21 year old healthy female. Pt has agreed to cath at this time. 09/05/17 18:41, 61 white blood cells seen on urinalysis with large blood, however there are 30 squamous epithelial cells. Patient was to try to get a more straight catheterized reliable urinalysis, however patient did not have any urine in the bladder at that time. IV fluids are pending at this time and we will attempt straight cath again after IV fluids have gone in. (PILAR GOLDMAN) 09/05/17 20:42 Cath urine is unremarkable for acute infection at this time. See new urinalysis results. Urine cultures pending. Patient is an afebrile, well-hydrated, 21-year-old female who presents to the ED with a ureteropelvic stone. Vitals are acceptable without any significant tachycardia, tachypnea, or hypoxia. No other labs or imaging warranted at this time based on H&P. I will send her home with a prescription for morphine, Zofran, and Flomax. Call urologist tomorrow to schedule an appointment for further evaluation and management. Return to the ED with any worsening/ concerning symptoms otherwise as reviewed in discharge. Patient is in agreement. (PAULETTE SANCHEZ) - Vital Signs Vital signs: Temp Pulse Resp BP Pulse Ox 98.9 F 80 9 L 108/69 96 09/05/17 11:49 09/05/17 11:49 09/05/17 19:01 09/05/17 19:01 09/05/17 19:01 - Laboratory Laboratory results interpreted by me: 09/05/17 09/05/17 09/05/17 12:23 12:23 13:21 RDW 15.4 H Chloride 110 H Urine Protein 100 H Urine Ketones Urine Blood LARGE H Urine Urobilinogen 2.0 H Ur Leukocyte Esterase MODERATE H 09/05/17 19:57 RDW Chloride Urine Protein 30 H Urine Ketones 80 H Urine Blood LARGE H Urine Urobilinogen Ur Leukocyte Esterase Discharge <PILAR GOLDMAN - Last Filed: 09/05/17 18:40> <PAULETTE SANCHEZ - Last Filed: 09/05/17 20:47> - Discharge Clinical Impression: Ureteral stone with hydronephrosis Condition: Stable Disposition: HOME, SELF-CARE Instructions: Antinausea Medication ([facility]) Additional Instructions: Push fluids (i.e. water, cranberry juice) Proper hygenic technique Keep the skin clean Tylenol/ibuprofen as needed Take medications as directed F/u with your PCM in 2-3 days for a recheck Call urology tomorrow to schedule an appointment for further evaluation and management Return to the ED with any worsening symptoms and/or development of fever, headache, chest pain, palpitations, syncope, shortness of breath, trouble breathing, abdominal pain, n/v/d, blood in stool/urine, loss of control of bowel /bladder, urinary retention, or other worsening symptoms that are concerning to you. Prescriptions: Morphine Sulfate [Morphine Ir 15 Mg Tablet] 15 mg PO TID #15 tablet Ondansetron [Zofran Odt 4 mg Tablet] 1 - 2 tab PO Q4H PRN #15 tab.rapdis PRN Reason: For Nausea/Vomiting Tamsulosin HCl [Flomax] 0.4 mg PO DAILY #10 cap.er.24h Referrals: ARTI DICKERSON PA-C [Primary Care Provider] - Follow up in 3-5 days [facility] [Provider Group] - 09/07/17
[2017-09-05] MEDS ORDERED: HYDROMORPHONE HCL INJ/PF 2 MG/ML AMPULE IV ONE ×2 (16:18→20:52)
[2017-09-05] MEDS ORDERED: KETOROLAC TROMETHAMINE INJ/PF 30 MG/1 ML SDV IV ONE (16:19)
[2017-09-05 20:30] LABS: APPEARANCE,URINE SLIGHTLY-CLOUDY; BILIRUBIN,URINE NEGATIVE (NEGATIVE); COLOR,URINE YELLOW; GLUCOSE, URINE NEGATIVE (NEGATIVE); KETONES,URINE 80 mg/dL (NEGATIVE); LEUKOCYTE ESTERASE,URINE NEGATIVE (NEGATIVE); NITRITE,URINE NEGATIVE (NEGATIVE); PROTEIN,URINE 30 mg/dL (NEGATIVE); URINE SPECIFIC GRAVITY 1.025; UROBILINOGEN,URINE NEGATIVE mg/dL (<2.0)
[2017-09-05 21:44] VITALS: BP 118/68
== END 2017-09-05 21:44 | disposition home or self-care (01) ==
LOC: ER 11:38
DX: N13.2 Hydronephrosis with renal and ureteral calculous obstruction (principal); R10.32 Left lower quadrant pain; R11.2 Nausea with vomiting, unspecified; R19.7 Diarrhea, unspecified; F17.200 Nicotine dependence, unspecified, uncomplicated
CPT/HCPCS: 96376; 99284; 96361; 51701; 96375; 96365; 36415; 87086; 83690; 84703; 85025; 80053; 81001; 76380; J1885; J2765; J2270; J1170; J2550; J0696; J7030

== ENCOUNTER 2017-09-07 12:50 | Emergency (ER) | payer MEDICAID ==
[2017-09-07] MEDS ORDERED: OXYCODONE-ACETAMINOPHEN 5-325 MG TABLET PO ONE (13:27)
[2017-09-07] MEDS ORDERED: IBUPROFEN 600 MG TABLET PO ONE (13:27)
--- NOTE | 2017-09-07 13:30 | ER Document Report ---
ED GI/ - General Chief Complaint: Flank Pain Stated Complaint: ABDOMINAL PAIN Time Seen by Provider: 09/07/17 13:21 Notes: The patient is a 21-year-old female, past medical history 7 mm stone on the left , presents with increasing pain she tried to call the [place] urology clinic, but no doctors are available. She tried the oral morphine she was prescribed 2 nights ago in the ER, but this is not helping much. She took a Motrin once. Patient says Zofran is helping with her nausea. She denies fevers , increased flank pain, dysuria, diarrhea, constipation or rash. TRAVEL OUTSIDE OF THE U[place] IN LAST 30 DAYS: No - Related Data Allergies/Adverse Reactions: vancomycin Allergy (Verified 09/05/17 11:56) Past Medical History - General Information source: Patient - Social History Smoking Status: Current Every Day Smoker Chew tobacco use (# tins/day): No Frequency of alcohol use: None Drug Abuse: None Family History: None Patient has suicidal ideation: No Patient has homicidal ideation: No Renal/ Medical History: Denies: Hx Peritoneal Dialysis Psychiatric Medical History: Reports: Hx Depression - on prozac - Immunizations Immunizations up to date: Yes Review of Systems - Review of Systems Notes: REVIEW OF SYSTEMS: CONSTITUTIONAL: -fevers, -chills EENT: -eye pain, -difficulty swallowing, -nasal congestion CARDIOVASCULAR: -chest pain, -syncope. RESPIRATORY: -cough, -SOB GASTROINTESTINAL: -abdominal pain, +nausea, -vomiting, -diarrhea GENITOURINARY: -dysuria, -hematuria MUSCULOSKELETAL:+left flank pain, -neck pain SKIN: -rash or skin lesions. HEMATOLOGIC: -easy bruising or bleeding. LYMPHATIC: -swollen, enlarged glands. NEUROLOGICAL: -altered mental status or loss of consciousness, -headache, - neurologic symptoms PSYCHIATRIC: -anxiety, -depression. ALL OTHER SYSTEMS REVIEWED AND NEGATIVE. Physical Exam - Vital signs Vitals: Temp Pulse Resp BP Pulse Ox 98.7 F 70 18 129/90 H 98 09/07/17 13:09 09/07/17 13:09 09/07/17 13:09 09/07/17 13:09 09/07/17 13:09 - Notes Notes: PHYSICAL EXAMINATION: GENERAL: Well-appearing, well-nourished and in no acute distress. HEAD: Atraumatic, normocephalic. EYES: Pupils equal round and reactive to light, extraocular movements intact, sclera anicteric, conjunctiva are normal. ENT: nares patent, oropharynx clear without exudates. Moist mucous membranes. NECK: Normal range of motion, supple without lymphadenopathy LUNGS: Breath sounds clear to auscultation bilaterally and equal. No wheezes rales or rhonchi. HEART: Regular rate and rhythm without murmurs ABDOMEN: Soft, nontender, normoactive bowel sounds. No guarding, no rebound. No masses appreciated. EXTREMITIES: Normal range of motion, no pitting or edema. No cyanosis. NEUROLOGICAL: Cranial nerves grossly intact. Normal speech, normal gait. Normal sensory and motor exams. PSYCH: Normal mood, normal affect. SKIN: Warm, Dry, normal turgor, no rashes or lesions noted. Course - Re-evaluation Re-evalutation: Patient appears well and is nontoxic appearing. She is requesting a different pain medication, since the oral morphine does not seem to help when she is having severe renal colic. Also provided her with follow-up at [facility]. Urine appears contaminated and repeat urine sent after instructions about wiping correctly, but this also appeared contaminated. 2 days ago, she required a cath and her cathed urine did not show any signs of a UTI. Spoke to patient about obtaining another cath, but she declines at this time. Culture sent of her urine. Since she appears nontoxic, is not having any fevers and is not having any current renal colic pain in the ER, do not suspect a septic stone at this time. Patient given extremely strict return precautions and she understands. - Vital Signs Vital signs: Temp Pulse Resp BP Pulse Ox 98.7 F 66 18 112/71 98 09/07/17 15:43 09/07/17 15:43 09/07/17 13:09 09/07/17 15:43 09/07/17 15:43 - Laboratory Laboratory results interpreted by me: 09/07/17 13:15 Urine Ketones TRACE H Urine Blood MODERATE H Ur Leukocyte Esterase LARGE H Discharge - Discharge Clinical Impression: Renal colic on left side Condition: Stable Disposition: HOME, SELF-CARE Additional Instructions: Follow-up with the [facility] urology group. Address: [facility] , [place] [address] KIDNEY STONE: You are passing or have passed a kidney stone. These stones are usually due to increased calcium or uric acid concentrations in your urine. Stones within the kidney itself are not painful. The pain occurs as the stone leaves the kidney to pass down the long tube, called the ureter, leading to the bladder. If the stone is small, it will usually pass by itself. Most patients can pass the stone at home. You will usually receive medications for pain, nausea or vomiting, and sometimes a medication to assist in passing the kidney stone. However, if the pain is very severe or if vomiting prevents you from taking oral pain medications, you may need to return for further treatment. Drink three or four quarts of fluids per day. You will be given pain medication (if needed) and urine strainers. Strain all your urine to see if the stone passes. If your doctor has asked you to bring the stone in for analysis, return with the stone once it has passed. Return if pain or vomiting become severe, if you develop a high fever, if you are unable to pass your urine, or if other unusual symptoms occur. ANTINAUSEA MEDICATION: You have been given a medication to suppress nausea and vomiting. This type of medication can be given as a shot, pill, or suppository. It will usually last for many hours. Pills and shots usually last six to eight hours, suppositories last about 12 hours. For the typical illness, only one or two doses of the medication may be necessary. Mild lightheadedness may occur. This type of medicine can cause drowsiness. Do not drive or operate dangerous machinery while under its influence. Do not mix with alcohol. See your doctor at once if you have muscle spasms or tightness, or uncontrollable motions (particularly of the neck, mouth, or jaw). Persistent vomiting or severe lightheadedness should also be evaluated by the physician. ORAL NARCOTIC MEDICATION: You have been given a prescription for pain control. This medication is a narcotic. It's best taken with food, as nausea can result if taken on an empty stomach. Don't operate machinery or drive within six hours of taking this medication. Do not combine this medicine with alcohol, or with any medication which can cause sedation (such as cold tablets or sleeping pills) unless you get permission from the physician. Narcotics tend to cause constipation. If possible, drink plenty of fluids and eat a diet high in fiber and fruits. Please be aware that prescription narcotics also have the potential for abuse. People become addicted to these medications because of the general sense of wellbeing that they induce. This feeling along with a significant reduction in tension, anxiety, and aggression provides a stimulating seductive quality to these drugs. Once your pain is under control, we encourage you to discard your unused narcotics. FLOMAX (tamsulosin): Flomax is a medicine that shrinks the prostate gland. It helps relieve symptoms of benign prostatic hypertrophy, such as frequent urination, weak stream, and inadequate emptying. It has been shown to dilate the ureter (tube leading from the kidney to the bladder) and help in passing kidney stones Flomax usually causes no side effects. You may notice slight tiredness and dizziness for a few days. Some patients develop nasal congestion. Rarely, impotence can occur. If the symptoms are bothersome and don't improve with continued use, call your doctor. Contact your doctor or return if you have fainting spells, severe weakness or dizziness, shortness of breath, or rash. FOLLOW-UP CARE: If you have been referred to a physician for follow-up care, call the physician s office for an appointment as you were instructed or within the next two days. If you experience worsening or a significant change in your symptoms, notify the physician immediately or return to the Emergency Department at any time for re-evaluation. Prescriptions: Ondansetron [Zofran Odt 4 mg Tablet] 1 - 2 tab PO Q4H PRN #15 tab.rapdis PRN Reason: For Nausea/Vomiting Oxycodone HCl/Acetaminophen [Percocet 5-325 mg Tablet] 1 - 2 tab PO Q4H PRN #15 tablet PRN Reason: Forms: Elevated Blood Pressure Referrals: KORI COX DO [ASSOCIATE] - Follow up as needed
[2017-09-07 13:43] LABS: APPEARANCE,URINE SLIGHTLY-CLOUDY; BILIRUBIN,URINE NEGATIVE (NEGATIVE); COLOR,URINE YELLOW; GLUCOSE, URINE NEGATIVE (NEGATIVE); KETONES,URINE TRACE mg/dL (NEGATIVE); LEUKOCYTE ESTERASE,URINE LARGE (NEGATIVE); NITRITE,URINE NEGATIVE (NEGATIVE); PROTEIN,URINE NEGATIVE (NEGATIVE); UROBILINOGEN,URINE NEGATIVE mg/dL (<2.0)
[2017-09-07 15:45] VITALS: BP 112/71
== END 2017-09-07 15:45 | disposition home or self-care (01) ==
LOC: ER 12:50
DX: N23 Unspecified renal colic (principal); F17.200 Nicotine dependence, unspecified, uncomplicated; Z88.3 Allergy status to other anti-infective agents
CPT/HCPCS: 99283; 81025; 81001; J3490

== ENCOUNTER → 2017-09-07 | Outpatient (CLI) | payer MEDICAID ==
[2017-09-07 15:17] LABS: APPEARANCE,URINE SLIGHTLY-CLOUDY; BILIRUBIN,URINE NEGATIVE (NEGATIVE); COLOR,URINE YELLOW; GLUCOSE, URINE NEGATIVE (NEGATIVE); KETONES,URINE 20 mg/dL (NEGATIVE); LEUKOCYTE ESTERASE,URINE MODERATE (NEGATIVE); NITRITE,URINE NEGATIVE (NEGATIVE); PROTEIN,URINE NEGATIVE (NEGATIVE); URINE SPECIFIC GRAVITY 1.012; UROBILINOGEN,URINE NEGATIVE mg/dL (<2.0)
== END ==
LOC: LAB 11:52
PROVIDERS: ATTEND Otolaryngology
DX: E07.89 Other specified disorders of thyroid (principal)
CPT/HCPCS: 36415; 81001; 84439; 84443

== ENCOUNTER 2018-03-06 07:37 | Emergency (ER) | payer SELFPAY ==
[2018-03-06] MEDS ORDERED: DEXAMETHASONE 4 MG TABLET PO ONE (08:41)
[2018-03-06] MEDS ORDERED: IBUPROFEN 800 MG TABLET PO ONE (08:41)
[2018-03-06] MEDS ORDERED: PENICILLIN G BENZATHINE 1.2 MILLION UNIT/2 ML DISP.SYRIN IM ONE (08:41)
[2018-03-06] MEDS ORDERED: LIDOCAINE 2% VISCOUS SOLN 20 ML UDCUP PO ONE (08:41)
--- NOTE | 2018-03-06 08:43 | ER Document Report ---
HPI - HPI Patient complains to provider of: Sore throat Time Seen by Provider: 03/06/18 08:09 Onset: Other - 2 days Onset/Duration: Worse Quality of pain: Achy Pain Level: 5 Context: Patient presents complaining of sore throat headache and ear pain for the past 2 days. Patient states that she is seen her ENT doctor in the past and was told that with the next throat infection she had she should have her tonsils removed. Patient expects to have her tonsils taken out today. Associated Symptoms: Earache, Sore throat. denies: Nonproductive cough, Fever, Rhinnorhea Exacerbated by: Denies Relieved by: Denies Similar symptoms previously: Yes Recently seen / treated by doctor: No - ROS ROS below otherwise negative: Yes Systems Reviewed and Negative: Yes All other systems reviewed and negative - CONSTITUTIONAL Constitutional: DENIES: Fever - EENT EENT: REPORTS: Sore Throat, Ear Pain - NEURO Neurology: REPORTS: Headache - RESPIRATORY Respiratory: DENIES: Trouble Breathing, Coughing - GASTROINTESTINAL Gastrointestinal: DENIES: Nausea, Patient vomiting - REPRODUCTIVE Reproductive: DENIES: : - MUSCULOSKELETAL Musculoskeletal: DENIES: Back Pain, Neck Pain - DERM Skin Color: Normal Skin Problems: None Past Medical History - General Information source: Patient - Social History Smoking Status: Current Every Day Smoker Chew tobacco use (# tins/day): No Smoking Education Provided: Yes Frequency of alcohol use: None Drug Abuse: None Occupation: Call center Lives with: Family Family History: None Patient has suicidal ideation: No Patient has homicidal ideation: No Renal/ Medical History: Denies: Hx Peritoneal Dialysis Psychiatric Medical History: Reports: Hx Depression - on prozac Surgical Hx: Negative - Immunizations Immunizations up to date: Yes Vertical Provider Document - CONSTITUTIONAL Agree With Documented VS: Yes Exam Limitations: No Limitations General Appearance: WD/WN, No Apparent Distress - INFECTION CONTROL TRAVEL OUTSIDE OF THE [place] IN LAST 30 DAYS: No - HEENT HEENT: Atraumatic, Normocephalic, Pharyngeal Exudate, Pharyngeal Tenderness, Pharyngeal Erythema. negative: Tympanic Membrane Red, Tympanic Membrane Bulging - NECK Neck: Lymphadenopathy-Left, Lymphadenopathy-Right - RESPIRATORY Respiratory: Breath Sounds Normal, No Respiratory Distress - CARDIOVASCULAR Cardiovascular: Regular Rhythm, No Murmur, Tachycardia - 104 - GI/ABDOMEN Gastrointestinal: Abdomen Soft - BACK Back: Normal Inspection - MUSCULOSKELETAL/EXTREMETIES Musculoskeletal/Extremeties: MAEW, FROM, Non-Tender - NEURO Level of Consciousness: Awake, Alert, Appropriate Motor/Sensory: No Motor Deficit - DERM Integumentary: Warm, Dry, No Rash Course - Re-evaluation Re-evalutation: 03/06/18 Patient able to manage oral secretion. No concern for peritonsillar abscess. Patient has been taking oral fluids without difficulty during her ER stay. Additional IV fluids given for hydration. Patient stable for discharge. Patient encouraged to follow-up with her ENT doctor for elective tonsillectomy. life care planner to bedside to discuss additional outpatient resources. - Vital Signs Vital signs: Temp Pulse Resp BP Pulse Ox 98.3 F 112 H 20 119/82 100 03/06/18 07:53 03/06/18 07:53 03/06/18 07:53 03/06/18 07:53 03/06/18 07:53 Discharge - Discharge Clinical Impression: Tonsillitis Condition: Stable Disposition: HOME, SELF-CARE Instructions: Corticosteroid Medication ([facility]), Use of [id number] Ibuprofen ([facility]), Tonsillitis ([facility]) Additional Instructions: Return immediately for any new or worsening symptoms Followup with your primary care provider, call tomorrow to make a followup appointment Prescriptions: Naproxen [Naprosyn 250 Nmg Tablet] 1 tab PO BID #14 tablet Forms: Smoking Cessation Education, Return to Work Referrals: KORI COX DO [ASSOCIATE] - Follow up tomorrow
[2018-03-06] MEDS ORDERED: NORMAL SALINE 1000 ML 1,000 ML IV ONE (09:33)
[2018-03-06 11:25] VITALS: BP 112/69
== END 2018-03-06 11:25 | disposition home or self-care (01) ==
LOC: ER 07:37
DX: J03.90 Acute tonsillitis, unspecified (principal); R51 Headache; H92.09 Otalgia, unspecified ear; F17.200 Nicotine dependence, unspecified, uncomplicated
CPT/HCPCS: 99283; 96372; 96360; 87070; J3490; J0561; J7030

== ENCOUNTER 2018-05-28 12:03 | Emergency (ER) | payer SELFPAY ==
[2018-05-28 12:13] VITALS: BP 123/80
[2018-05-28] MEDS ORDERED: DIPH/PERTUSS(ACELL)/TETANUS VAC/PF 0.5 ML SYR (>=10YO) IM ONE (14:01)
--- NOTE | 2018-05-28 14:03 | ER Document Report ---
ED Medical Screen (RME) - General Chief Complaint: Hand Pain Stated Complaint: HAND INJURY Time Seen by Provider: 05/28/18 14:01 Mode of Arrival: Ambulatory Information source: Patient TRAVEL OUTSIDE OF THE [place] IN LAST 30 DAYS: No - HPI Patient complains to provider of: R arm lac Onset: Just prior to arrival - pt. cut R hand on broken mirror at home. Tet- OOD - Related Data Allergies/Adverse Reactions: vancomycin Allergy (Verified 05/28/18 12:07) Past Medical History Renal/ Medical History: Denies: Hx Peritoneal Dialysis Psychiatric Medical History: Reports: Hx Depression - on prozac - Immunizations Immunizations up to date: Yes History of Influenza Vaccine for 11/2016 - 04/2017 Season: Unknown Physical Exam - Vital signs Vitals: Temp Pulse Resp BP Pulse Ox 98.5 F 94 12 123/80 98 05/28/18 12:12 05/28/18 12:12 05/28/18 12:12 05/28/18 12:12 05/28/18 12:12 Course - Vital Signs Vital signs: Temp Pulse Resp BP Pulse Ox 98.5 F 94 12 123/80 98 05/28/18 12:12 05/28/18 12:12 05/28/18 12:12 05/28/18 12:12 05/28/18 12:12
[2018-05-28] MEDS ORDERED: LIDOCAINE 1% INJ-PF (10 MG/ML) 30 ML SDV INJ ONE (14:46)
--- NOTE | 2018-05-28 15:45 | ER Document Report ---
Addendum entered and electronically signed by JUSTIN FRAUSTO FNP 06/08/18 07:55: Procedures - Laceration/Wound Repair Right proximal knuckle Wound length (cm): 1 Wound's Depth, Shape: Superficial, Linear Laceration pre-procedure: Sterile PPE donned, Shur-Clens applied Anesthetic type: 1% Lidocaine Volume Anesthetic (mLs): 3 Wound explored: Clean, No foreign body removed Irrigated w/ Saline (mLs): 10 Wound Repaired With: Sutures Suture Size/Type: 5:0, Nylon Number of Sutures: 2 Layer Closure?: No Post-procedure wound care: Sterile dressing applied Post-procedure NV exam normal: Yes Complications: No Original Note: HPI - HPI Time Seen by Provider: 05/28/18 14:01 Pain Level: Denies Context: Patient is a 22-year-old female who presents emergency department with a laceration to her right knuckle at the proximal phalangeal and metacarpal joint. She states that she cut her knuckle on a mirror. Denies any jagged edges. She was immunized with her tetanus vaccine in triage. Denies any past medical history. This happened shortly prior to arrival. - CONSTITUTIONAL Constitutional: DENIES: Fever, Chills - EENT EENT: DENIES: Sore Throat, Ear Pain, Eye problems - NEURO Neurology: DENIES: Headache, Weakness, Vision blurred, Dizzinesss / Vertigo - CARDIOVASCULAR Cardiovascular: DENIES: Chest pain - RESPIRATORY Respiratory: DENIES: Trouble Breathing, Coughing - GASTROINTESTINAL Gastrointestinal: DENIES: Abdominal Pain, Black / Bloody Stools - URINARY Urinary: DENIES: Dysuria, Urgency, Frequency - REPRODUCTIVE Reproductive: DENIES: : - MUSCULOSKELETAL Musculoskeletal: DENIES: Extremity pain Past Medical History - General Information source: Patient - Social History Smoking Status: Unknown if Ever Smoked Family History: None Patient has suicidal ideation: No Patient has homicidal ideation: No Renal/ Medical History: Denies: Hx Peritoneal Dialysis Psychiatric Medical History: Reports: Hx Depression - on prozac - Immunizations Immunizations up to date: Yes Vertical Provider Document - CONSTITUTIONAL Agree With Documented VS: Yes Exam Limitations: No Limitations General Appearance: No Apparent Distress - INFECTION CONTROL TRAVEL OUTSIDE OF THE [place] IN LAST 30 DAYS: No - HEENT HEENT: Atraumatic, Normocephalic - NECK Neck: Normal Inspection - RESPIRATORY Respiratory: No Respiratory Distress - CARDIOVASCULAR Cardiovascular: Regular Rate Pulses: Normal: Radial - MUSCULOSKELETAL/EXTREMETIES Musculoskeletal/Extremeties: FROM, Tender - Right third knuckle - NEURO Level of Consciousness: Awake, Alert, Appropriate Motor/Sensory: No Motor Deficit, No Sensory Deficit - DERM Integumentary: Warm, Dry, Laceration - Right third knuckle Course - Re-evaluation Re-evalutation: 05/28/18 15:45 Patient is able to move all phalanges with strong flexion and extension. Do not suspect she has any tendon injury. 3 stitches were placed to her laceration. She tolerated the procedure well. She will follow-up with her primary care provider to have her stitches removed. She will be started on Keflex for prophylactic antibiotic treatment. Verbal discharge instructions were given to the patient. They verbalized understanding. They are stable for discharge. - Vital Signs Vital signs: Temp Pulse Resp BP Pulse Ox 98.5 F 94 12 123/80 98 05/28/18 12:12 05/28/18 12:12 05/28/18 12:12 05/28/18 12:12 05/28/18 12:12 Discharge - Discharge Clinical Impression: Laceration Condition: Stable Disposition: HOME, SELF-CARE Instructions: Antibiotic Ointment Protection ([facility]), Laceration Care ([facility]), Prophylactic Antibiotic ([facility]), Soap Cleansing ([facility]), Tetanus Immunization Given ([facility]) Additional Instructions: Please return to your primary doctor, the ED, or an urgent care in 7 days for suture removal. Return immediately if you develop spreading redness around the wound, pus from the wound, worsening pain, or a fever of >100.4. Keep the area clean and dry. Wash gently with soap and water twice daily and cover with antibiotic ointment. Have been sent home with antibiotics to prevent infection. Please finish all your medications as prescribed. Prescriptions: Cephalexin Monohydrate [Keflex 500 mg Capsule] 500 mg PO Q6H 5 Days #20 capsule
== END 2018-05-28 15:56 | disposition home or self-care (01) ==
LOC: ER 12:03
DX: S61.411A Laceration without foreign body of right hand, initial encounter (principal); W26.8XXA Contact with other sharp object(s), not elsewhere classified, initial encounter; Z23 Encounter for immunization
CPT/HCPCS: 99283; 90471; 90715; 12001; J3490

== ENCOUNTER 2018-07-12 08:25 | Emergency (ER) | payer SELFPAY ==
[2018-07-12 09:14] LABS: ABSOLUTE EOSINOPHILS # (AUTO) 0.2 10^3/uL (0.0-0.6); ABSOLUTE LYMPHOCYTES (AUTO) 0.9 10^3/uL (0.5-4.7); ABSOLUTE MONOCYTES (AUTO) 0.2 10^3/uL (0.1-1.4); BASOPHILS % (AUTO) 0.6 % (0-2); EOSINOPHILS % (AUTO) 4.7 % (0-6); HEMOGLOBIN 12.8 g/dL (12.0-15.5); LYMPHOCYTES % (AUTO) 21.1 % (13-45); MEAN CORPUSCULAR HEMOGLOBIN 26.7 pg (27.0-33.4); MEAN CORPUSCULAR HGB CONC 32.8 g/dL (32.0-36.0); MEAN CORPUSCULAR VOLUME 81 fl (80-97); MONOCYTES % (AUTO) 5.3 % (3-13); PLATELET COUNT 275 10^3/uL (150-450); RED BLOOD COUNT 4.79 10^6/uL (3.72-5.28); RED CELL DISTRIBUTION WIDTH 14.9 % (11.5-14.0); SEGMENTED NEUTROPHILS % (AUTO) 68.3 % (42-78); TOTAL CELLS COUNTED % (AUTO) 100 %; WHITE BLOOD COUNT 4.4 10^3/uL (4.0-10.5)
[2018-07-12] MEDS ORDERED: ONDANSETRON HCL INJ/PF 4 MG/2 ML SDV IV ONE (09:21)
--- NOTE | 2018-07-12 09:23 | ER Document Report ---
ED GI/ - General Chief Complaint: Flank Pain Stated Complaint: FLANK PAIN Time Seen by Provider: 07/12/18 09:14 Primary Care Provider: [facility] [Provider Group] - Follow up tomorrow ARTI DICKERSON PA-C [Primary Care Provider] - Follow up as needed Mode of Arrival: Ambulatory Information source: Patient Notes: Patient presents complaining of the right flank pain that started today. Patient reports having dysuria symptoms for the past week. Patient reports having nausea and vomiting x1 episode today. No fever patient does have a history of kidney stones and suspects the same today. Patient states she had severe pain at home although currently denies any flank pain at this time. TRAVEL OUTSIDE OF THE [place] IN LAST 30 DAYS: No - HPI Patient complains to provider of: Flank pain, Vomiting Onset: This morning Timing/Duration: Gradual Severity at maximum: Severe Severity in ED: None Pain Level: Denies Location: Right flank Vaginal bleeding (Compared to normal period): Similar Sexual history: Active Associated symptoms: Dysuria, Nausea, Vomiting. denies: Fever Exacerbated by: Denies Relieved by: Denies Similar symptoms previously: Yes Recently seen / treated by doctor: No - Related Data Allergies/Adverse Reactions: vancomycin Allergy (Verified 07/12/18 08:26) Past Medical History - General Information source: Patient - Social History Smoking Status: Never Smoker Smoking Education Provided: Yes Frequency of alcohol use: None Drug Abuse: None Occupation: Painting Family History: None Patient has suicidal ideation: No Patient has homicidal ideation: No Renal/ Medical History: Reports: Hx Kidney Stones. Denies: Hx Peritoneal Dialysis Psychiatric Medical History: Reports: Hx Anxiety, Hx Depression - on prozac - Immunizations Immunizations up to date: Yes Review of Systems - Review of Systems Constitutional: No symptoms reported. denies: Fever EENT: No symptoms reported Cardiovascular: No symptoms reported. denies: Chest pain Respiratory: No symptoms reported. denies: Cough, Short of breath Gastrointestinal: Nausea, Vomiting. denies: Abdominal pain Genitourinary: Dysuria, Flank pain Female Genitourinary: No symptoms reported Musculoskeletal: Back pain Skin: No symptoms reported Hematologic/Lymphatic: No symptoms reported Neurological/Psychological: No symptoms reported Physical Exam - Vital signs Vitals: Temp Pulse BP Pulse Ox 97.9 F 68 118/80 99 07/12/18 08:31 07/12/18 08:31 07/12/18 08:31 07/12/18 08:31 - General General appearance: Appears well, Alert In distress: None - HEENT Head: Normocephalic Eyes: Normal Conjunctiva: Normal Nasal: Normal Mouth/Lips: Normal Mucous membranes: Normal Neck: Normal, Supple - Respiratory Respiratory status: No respiratory distress Chest status: Nontender Breath sounds: Normal. No: Rales, Rhonchi, Stridor, Wheezing Chest palpation: Normal - Cardiovascular Rhythm: Regular Heart sounds: S1 appreciated, S2 appreciated Murmur: No - Abdominal Inspection: Morbidly Obese Distension: No distension Bowel sounds: Normal Tenderness: Nontender Organomegaly: No organomegaly - Back Back: Normal, Nontender. No: CVA tenderness, Vertebra tenderness - Extremities General upper extremity: Normal inspection, Normal ROM General lower extremity: Normal inspection, Normal ROM - Neurological Neuro grossly intact: Yes Cognition: Normal [place] Coma Scale Eye Opening: Spontaneous [place] Coma Scale Verbal: Oriented [place] Coma Scale Motor: Obeys Commands [place] Coma Scale Total: 15 - Psychological Associated symptoms: Normal affect, Normal mood - Skin Skin Temperature: Warm Skin Moisture: Dry Skin Color: Normal Course - Re-evaluation Re-evalutation: 07/12/18 11:50 Patient's pain able to be managed while here in the department. No additional vomiting. Patient without any fever, leukocytosis or change in renal function. Patient without any UTI noted on urinalysis. Patient does have a right UVJ ureteral stone. Patient stable for discharge at this time. Discussed worsening symptoms of patient to return immediately for. - Vital Signs Vital signs: Temp Pulse Resp BP Pulse Ox 97.8 F 55 L 16 108/63 95 07/12/18 12:06 07/12/18 12:06 07/12/18 12:06 07/12/18 12:06 07/12/18 12:06 - Laboratory Result Diagrams: 07/12/18 09:00 07/12/18 10:50 Laboratory results interpreted by me: 07/12/18 07/12/18 09:00 09:49 MCH 26.7 L RDW 14.9 H Urine Protein 100 H Urine Blood LARGE H Urine Ascorbic Acid 20 H 07/12/18 11:50 Labs- Entire Visit 07/12/18 07/12/18 07/12/18 09:00 09:00 09:00 WBC 4.4 RBC 4.79 Hgb 12.8 Hct 39.0 MCV 81 MCH 26.7 L MCHC 32.8 RDW 14.9 H Plt Count 275 Seg Neutrophils % 68.3 Lymphocytes % 21.1 Monocytes % 5.3 Eosinophils % 4.7 Basophils % 0.6 Absolute Neutrophils 3.0 Absolute Lymphocytes 0.9 Absolute Monocytes 0.2 Absolute Eosinophils 0.2 Absolute Basophils 0.0 Sodium Cancelled Potassium Cancelled Chloride Cancelled Carbon Dioxide Cancelled Anion Gap Cancelled BUN Cancelled Creatinine Cancelled Est GFR ( Amer) Cancelled Est GFR (Non-Af Amer) Cancelled Glucose Cancelled Calcium Cancelled Total Bilirubin Cancelled Direct Bilirubin Cancelled Neonat Total Bilirubin Cancelled Neonat Direct Bilirubin Cancelled Neonat Indirect Bili Cancelled AST Cancelled ALT Cancelled Alkaline Phosphatase Cancelled Total Protein Cancelled Albumin Cancelled Lipase Cancelled Serum HCG, Qual NEGATIVE Urine Color Urine Appearance Urine pH Ur Specific [place] Urine Protein Urine Glucose (UA) Urine Ketones Urine Blood Urine Nitrite Urine Bilirubin Urine Urobilinogen Ur Leukocyte Esterase Urine WBC (Auto) Urine RBC (Auto) Urine Bacteria (Auto) Squamous Epi Cells Auto Urine Mucus (Auto) Urine Ascorbic Acid 07/12/18 07/12/18 09:49 10:50 WBC RBC Hgb Hct MCV MCH MCHC RDW Plt Count Seg Neutrophils % Lymphocytes % Monocytes % Eosinophils % Basophils % Absolute Neutrophils Absolute Lymphocytes Absolute Monocytes Absolute Eosinophils Absolute Basophils Sodium 141.6 Potassium 4.3 Chloride 107 Carbon Dioxide 26 Anion Gap 9 BUN 12 Creatinine 0.63 Est GFR ( Amer) > 60 Est GFR (Non-Af Amer) > 60 Glucose 92 Calcium 9.0 Total Bilirubin 0.3 Direct Bilirubin 0.2 Neonat Total Bilirubin Not Reportable Neonat Direct Bilirubin Not Reportable Neonat Indirect Bili Not Reportable AST 19 ALT 24 Alkaline Phosphatase 87 Total Protein 6.8 Albumin 3.7 Lipase 82.9 Serum HCG, Qual Urine Color DARK YELLOW Urine Appearance CLOUDY Urine pH 5.0 Ur Specific [place] 1.033 Urine Protein 100 H Urine Glucose (UA) NEGATIVE Urine Ketones NEGATIVE Urine Blood LARGE H Urine Nitrite NEGATIVE Urine Bilirubin NEGATIVE Urine Urobilinogen NEGATIVE Ur Leukocyte Esterase NEGATIVE Urine WBC (Auto) 1 Urine RBC (Auto) >182 Urine Bacteria (Auto) TRACE Squamous Epi Cells Auto 1 Urine Mucus (Auto) MANY Urine Ascorbic Acid 20 H - Diagnostic Test Radiology reviewed: Reports reviewed Discharge - Discharge Clinical Impression: Ureteral stone, Flank pain Nausea & vomiting Qualifiers: Vomiting type: unspecified Vomiting Intractability: non-intractable Qualified Code(s): R11.2 - Nausea with vomiting, unspecified Condition: Stable Disposition: HOME, SELF-CARE Additional Instructions: Return immediately for any new or worsening symptoms; worsening pain, fever, persistent vomiting, any new or concerning symptoms Followup with your primary care provider, call tomorrow to make a followup appointment Follow-up with urology for further evaluation, call today to make a follow-up appointment KIDNEY STONE: You are passing or have passed a kidney stone. These stones are usually due to increased calcium or uric acid concentrations in your urine. Stones within the kidney itself are not painful. The pain occurs as the stone leaves the kidney to pass down the long tube, called the ureter, leading to the bladder. If the stone is small, it will usually pass by itself. Most patients can pass the stone at home. You will usually receive medications for pain, nausea or vomiting, and sometimes a medication to assist in passing the kidney stone. However, if the pain is very severe or if vomiting prevents you from taking oral pain medications, you may need to return for further treatment. Drink three or four quarts of fluids per day. You will be given pain medication (if needed) and urine strainers. Strain all your urine to see if the stone passes. If your doctor has asked you to bring the stone in for analysis, return with the stone once it has passed. Return if pain or vomiting become severe, if you develop a high fever, if you are unable to pass your urine, or if other unusual symptoms occur. ANTINAUSEA MEDICATION: You have been given a medication to suppress nausea and vomiting. This type of medication can be given as a shot, pill, or suppository. It will usually last for many hours. Pills and shots usually last six to eight hours, suppositories last about 12 hours. For the typical illness, only one or two doses of the medication may be necessary. Mild lightheadedness may occur. This type of medicine can cause drowsiness. Do not drive or operate dangerous machinery while under its influence. Do not mix with alcohol. See your doctor at once if you have muscle spasms or tightness, or uncontrollable motions (particularly of the neck, mouth, or jaw). Persistent vomiting or severe lightheadedness should also be evaluated by the physician. ORAL NARCOTIC MEDICATION: You have been given a prescription for pain control. This medication is a narcotic. It's best taken with food, as nausea can result if taken on an empty stomach. Don't operate machinery or drive within six hours of taking this medication. Do not combine this medicine with alcohol, or with any medication which can cause sedation (such as cold tablets or sleeping pills) unless you get permission from the physician. Narcotics tend to cause constipation. If possible, drink plenty of fluids and eat a diet high in fiber and fruits. Please be aware that prescription narcotics also have the potential for abuse. People become addicted to these medications because of the general sense of wellbeing that they induce. This feeling along with a significant reduction in tension, anxiety, and aggression provides a stimulating seductive quality to these drugs. Once your pain is under control, we encourage you to discard your unused narcotics. FLOMAX (tamsulosin): Flomax is a medicine that shrinks the prostate gland. It helps relieve symptoms of benign prostatic hypertrophy, such as frequent urination, weak stream, and inadequate emptying. It has been shown to dilate the ureter (tube leading from the kidney to the bladder) and help in passing kidney stones Flomax usually causes no side effects. You may notice slight tiredness and dizziness for a few days. Some patients develop nasal congestion. Rarely, impotence can occur. If the symptoms are bothersome and don't improve with continued use, call your doctor. Contact your doctor or return if you have fainting spells, severe weakness or dizziness, shortness of breath, or rash. FOLLOW-UP CARE: If you have been referred to a physician for follow-up care, call the physicians office for an appointment as you were instructed or within the next two days. If you experience worsening or a significant change in your symptoms, notify the physician immediately or return to the Emergency Department at any time for re-evaluation. Prescriptions: Ondansetron HCl [Zofran 4 mg Tablet] 1 - 2 tab PO Q6 PRN #15 tablet PRN Reason: Oxycodone HCl/Acetaminophen [Percocet 5-325 mg Tablet] 1 tab PO ASDIR PRN #15 tablet PRN Reason: Tamsulosin HCl [Flomax 0.4 mg Cap.sr] 0.4 mg PO DAILY #7 cap.sr.24h Forms: Smoking Cessation Education Referrals: ARTI DICKERSON PA-C [Primary Care Provider] - Follow up as needed [facility] [[facility]] - Follow up tomorrow
[2018-07-12 10:09] LABS: APPEARANCE,URINE CLOUDY; BILIRUBIN,URINE NEGATIVE (NEGATIVE); GLUCOSE, URINE NEGATIVE (NEGATIVE); KETONES,URINE NEGATIVE (NEGATIVE); LEUKOCYTE ESTERASE,URINE NEGATIVE (NEGATIVE); NITRITE,URINE NEGATIVE (NEGATIVE); PROTEIN,URINE 100 mg/dL (NEGATIVE); URINE SPECIFIC GRAVITY 1.033; UROBILINOGEN,URINE NEGATIVE mg/dL (<2.0)
[2018-07-12 10:10] LABS: COLOR,URINE DARK YELLOW
--- NOTE | 2018-07-12 10:41 | RADIOLOGY REPORT (SQ) ---
EXAM DESCRIPTION: CT ABD/PELVIS NO ORAL OR IV COMPLETED DATE/TIME: 07/12/2018 10:24 am REASON FOR STUDY: R flank pain COMPARISON: None. TECHNIQUE: CT scan of the abdomen and pelvis performed without intravenous or oral contrast. Images reviewed with lung, soft tissue, and bone windows. Reconstructed coronal and sagittal MPR images revi ewed. All images stored on PACS. All CT scanners at this facility use dose modulation, iterative reconstruction, and/or weight based d osing when appropriate to reduce radiation dose to as low as reasonably achievable (ALARA). [facility]: Dose Right [facility]: CareDose [facility]: Dose Right [facility]: Teradose 4D [facility]: Smart Medication Review RADIATION DOSE: CT Rad equipment meets quality standard of care and radiation dose reduction techniq ues were employed. CTDIvol: 13.1 mGy. DLP: 740 mGy-cm.mGy. LIMITATIONS: None. FINDINGS: LOWER CHEST: No significant findings. No nodules or infiltrates. NON-CONTRASTED LIVER, SPLEEN, ADRENALS: Evaluation limited by lack of IV contrast. No identified sign ificant masses. PANCREAS: No masses. No peripancreatic inflammatory changes. GALLBLADDER: No identified stones by CT criteria. No inflammatory changes to suggest cholecystitis. RIGHT KIDNEY AND URETER: No suspicious masses. Assessment limited by lack of IV contrast. Periphera l nonobstructive calculus 5 mm. 3.6 mm calculus at the UV junction. No hydronephrosis or hydrouret er. LEFT KIDNEY AND URETER: No suspicious masses. Assessment limited by lack of IV contrast. No signifi cant calcifications. No hydronephrosis or hydroureter. AORTA AND RETROPERITONEUM: No aneurysm. No retroperitoneal masses or adenopathy. BOWEL AND PERITONEAL CAVITY: No obvious masses or inflammatory changes. No free fluid. APPENDIX: Normal. PELVIS, BLADDER, AND ABDOMINAL WALL:No abnormal masses. No free fluid. Bladder normal. BONES: No significant findings. OTHER: No other significant finding. IMPRESSION: 3.6 mm calculus UV junction on the right without hydronephrosis. Peripheral right nephrolithiasis. COMMENT: Quality ID # [id number]: Final reports with documentation of one or more dose reduction techniques (e.g., Automated exposure control, adjustment of the mA and/or kV according to patient size, use of iterative reconstruction technique) TECHNICAL DOCUMENTATION: JOB ID: [id number]- All Rights Reserved Reading location - IP/workstation name: [email or web address]
[2018-07-12 11:26] LABS: ALANINE AMINOTRANSFERASE 24 U/L (9-52); ALBUMIN 3.7 g/dL (3.5-5.0); ALKALINE PHOSPHATASE 87 U/L (38-126); ANION GAP 9 (5-19); ASPARTATE AMINO TRANSFERASE 19 U/L (14-36); BILIRUBIN,DIRECT 0.2 mg/dL (0.0-0.4); BILIRUBIN,TOTAL 0.3 mg/dL (0.2-1.3); BLOOD UREA NITROGEN 12 mg/dL (7-20); CARBON DIOXIDE 26 mmol/L (22-30); CHLORIDE 107 mmol/L (98-107); GLUCOSE 92 mg/dL (75-110); LIPASE 82.9 U/L (23-300); POTASSIUM 4.3 mmol/L (3.6-5.0); SODIUM 141.6 mmol/L (137-145); TOTAL PROTEIN 6.8 g/dL (6.3-8.2)
[2018-07-12 12:07] VITALS: BP 108/63
== END 2018-07-12 12:10 | disposition home or self-care (01) ==
LOC: ER 08:25
DX: N20.1 Calculus of ureter (principal); R10.9 Unspecified abdominal pain; R11.2 Nausea with vomiting, unspecified; R30.0 Dysuria
CPT/HCPCS: 99284; 51701; 96374; 36415; 83690; 84703; 85025; 80053; 81001; 74176; J2405

== ENCOUNTER 2018-08-20 22:49 | Emergency (ER) | payer SELFPAY ==
--- NOTE | 2018-08-20 23:37 | ER Document Report ---
Addendum entered and electronically signed by RAGINI MORALES LPC 08/21/18 10:27: Discharge - Discharge Clinical Impression: Suicidal ideation Drug overdose, intentional Qualifiers: Encounter type: initial encounter Qualified Code(s): T50.902A - Poisoning by unspecified drugs, medicaments and biological substances, intentional self-harm, initial encounter Condition: Stable Disposition: HOME, SELF-CARE Additional Instructions: You have been evaluated by both medical and behavioral health providers while in the emergency department. You have been cleared from both acute medical and psychiatric services. You denied current suicidal ideation and stated you don't want to hurt or kill yourself but at times don't want to be here. Your parents are natural supports and you are being linked to new professional supports. You are being provided prescriptions for a new medication regimen which should be taken as directed. Overdose: You have taken more medication than you should have. After your evaluation and care, it is felt that your overdose is not likely to be harmful or of any significant consequences to you and you are being discharged. In the future, you should be careful not to take more medications than what is prescribed for you. Although your overdose does not seem to be of any danger to you at this time, if you develop any unusual or unexpected symptoms after your discharge, you should return to the Emergency Department immediately for re-evaluation. DEPRESSION: Your evaluation reveals that you have mental depression. While symptoms may be vague, they often include disturbance of sleep, fatigue, loss of appetite, and general loss of interest in life. While depression may be a side effect of drugs, or a reaction to a major change in your life, many cases have no known cause. If depression is acute, and related to a major loss in your life, you can expect it to clear completely with time. If you have been depressed a long time, are prone to repeated bouts of depression or low mood, or have been thinking of suicide, get help. Depression can be treated with anti-depressant medication and counselling. Long-term depression will often take a few weeks to clear, even with appropriate medication. Follow-up care is important. SUICIDAL IDEATION: Suicidal ideation is a common medical term for thoughts about suicide, which may be as detailed as a formulated plan, without the suicidal act itself. Although most people who undergo suicidal ideation do not commit suicide, some go on to make suicide attempts. The range of suicidal ideation varies greatly from fleeting to detailed planning, role playing, and unsuccessful attempts. While thoughts about suicide are common, most people do not carry out serious actions to commit suicide. Based upon your evaluation and discussion with you, we do not believe you are currently at risk to act upon your thoughts of suicide. You have agreed to return to the Emergency Department, at any time, if you feel inclined to act upon your suicidal thoughts. FOLLOW-UP CARE: You are being prescribed a new medication regimen which is: Effexor 37.5MG daily for depression/increase energy/focus and Buspar 5MG twice a day for anxiety/calming effect/depression/sleep. You should take these medications as p rescribed. Your parents have agreed to be in charge of medications and administrations. You have outpatient follow up scheduled with [facility] on 08/22/18 at 0800 for therapy and 08/29/18 at 1015 for medication management. If you experience worsening or a significant change in your symptoms, notify the physician immediately, utilize mobile crisis or return to the Emergency Department at any time for re-evaluation. Referrals: ARTI DICKERSON PA-C [Primary Care Provider] - Follow up as needed [facility] [Outside] - Follow up as needed [facility] [Provider Group] - 08/22/18 8:00 am (The 08/22/18 at 0800 appointment is for therapy. The 08/29/18 at 1015 is for medication managment.) Original Note: ED Psych Disorder / Suicide - General TRAVEL OUTSIDE OF THE [place] IN LAST 30 DAYS: No <JUSTIN FRAUSTO M - Last Filed: 08/21/18 05:31> <RAGINI MORALES - Last Filed: 08/21/18 10:21> <JERRY JIMENEZ - Last Filed: 08/21/18 10:38> - General Chief Complaint: Overdose Stated Complaint: POSSIBLE OVERDOSE Time Seen by Provider: 08/20/18 23:01 Primary Care Provider: [facility] [Provider Group] - 08/22/18 8:00 am (The 08/22/18 at 0800 ap pointment is for therapy. The 08/29/18 at 1015 is for medication managment.) [facility] [Outside] - Follow up as needed ARTI DICKERSON PA-C [Primary Care Provider] - Follow up as needed Notes: Patient is a 22-year-old female who presents emergency department after a att empted suicide attempt. She took 20 (twenty)-5 mg melatonin. She states, "I feel like I am a burden." She did not elaborate on why or how she feels like this. She states, "I just feel like I do not belong." Her mother is her at bedside. The patient is currently prescribed sertraline, but she does not currently take her sertraline. She also has not been seeing her therapist. She states that she does have a headache. She does feel little drowsy. She has previous suicide attempts in the past. Denies any nausea, vomiting, abdominal pain, vomiting or any other symptoms. (JUSTIN FRAUSTO) - Related Data Allergies/Adverse Reactions: vancomycin Allergy (Verified 07/12/18 08:26) Past Medical History - Social History Smoking Status: Unknown if Ever Smoked Family History: None Patient has suicidal ideation: Yes Patient has homicidal ideation: No Renal/ Medical History: Reports: Hx Kidney Stones. Denies: Hx Peritoneal Dialysis Psychiatric Medical History: Reports: Hx Anxiety, Hx Depression - on prozac - Immunizations Immunizations up to date: Yes <JUSTIN FRAUSTO - Last Filed: 08/21/18 05:31> Review of Systems <JUSTIN FRAUSTO - Last Filed: 08/21/18 05:31> - Review of Systems Notes: REVIEW OF SYSTEMS: CONSTITUTIONAL : Denies recent illness. Denies recent unintentional weight loss. Denies fever, chills, or sweats. EENT: Denies eye, ear, throat, or mouth pain, discharge, or symptoms. Denies nasal or sinus congestion. CARDIOVASCULAR: Denies chest pain. RESPIRATORY: Denies shortness of breath, cough, congestion, difficulty breathing, or wheezing. GASTROINTESTINAL: Denies nausea, vomiting, and diarrhea. Denies abdominal pain. Denies constipation. GENITOURINARY: Denies difficulty urinating, burning, blood in urine, urgency or frequency. MUSCULOSKELETAL: Denies neck and back pain. Denies joint pain or swelling. SKIN: Denies rash, itchiness, or lesions HEMATOLOGIC : Denies easy bruising or bleeding. LYMPHATIC: Denies swollen, painful, enlarged glands. NEUROLOGICAL: Denies no numbness or tingling denies weakness. Denies headache. Denies altered mental status. Denies alteration in speech. PSYCHIATRIC: See HPI All other systems reviewed and negative. (JUSTIN FRAUSTO) Physical Exam <JUSTIN FRAUSTO - Last Filed: 08/21/18 05:31> - Vital signs Vitals: Resp 24 H 08/20/18 22:57 - Notes Notes: PHYSICAL EXAMINATION: GENERAL: Appears well, healthy, well-nourished, no acute distress. HEAD: Normocephalic, atraumatic. EYES: PERRL, conjunctiva normal, all extraocular movements intact, sclera nonicteric ENT: Moist mucous membranes. NECK: Supple, no noticeable swelling, redness, rash. Normal range of motion. LUNGS: Equal breath sounds bilaterally and clear to auscultation. No wheezes rales or rhonchi. CARDIOVASCULAR: S1-S2, regular rate, regular rhythm. Radial pulses 2+, normal. ABDOMEN: Normoactive bowel sounds. Soft, nontender, no guarding, no rebound tenderness, and no masses palpated. EXTREMITIES: Normal strength and range of motion, no pitting or edema. No cyanosis. NEUROLOGICAL: Moves all extremities upon command. Strength 5/5 in all extremities. PSYCH: Withdrawn, depressed looking. SKIN: Warm, dry. No rash, lesions, ulcerations noted. Normal skin turgor. (JUSTIN FRAUSTO) Course - Laboratory Result Diagrams: 08/20/18 23:53 08/20/18 23:53 <JUSTIN FRAUSTO - Last Filed: 08/21/18 05:31> - Laboratory Result Diagrams: 08/20/18 23:53 08/20/18 23:53 <JERRY JIMENEZ Vicente - Last Filed: 08/21/18 10:38> - Re-evaluation Re-evalutation: 08/21/18 00:54 Patient CBC, chemistry, and urinalysis are all unremarkable at this time. Her EKG shows normal sinus rhythm. She has been monitored and her oxygen saturation is 96% on room air. She is resting comfortably. 08/21/18 05:30 Patient's repeat Tylenol level was negative. I spoke with the primary nurse and please and control had signed off her chart at 230 this morning. Patient states that she feels fine, but still feels a little sleepy. At this time, the patient is medically cleared for mental health evaluation. She will be evaluated by [facility] in the morning. (JUSTIN FRAUSTO) - Vital Signs Vital signs: Temp Pulse Resp BP Pulse Ox 97.5 F 91 16 117/77 98 08/21/18 07:26 08/21/18 07:26 08/21/18 07:26 08/21/18 07:26 08/21/18 07:26 - Laboratory Laboratory results interpreted by me: 08/20/18 08/20/18 08/20/18 23:53 23:53 23:58 Hgb 11.7 L Hct 35.8 L MCH 26.4 L RDW 15.0 H Chloride 109 H Total Bilirubin 0.1 L Urine Bilirubin SMALL H Urine Urobilinogen 2.0 H Ur Leukocyte Esterase TRACE H Salicylates < 1.0 L Acetaminophen < 10 L 08/21/18 04:00 Hgb Hct MCH RDW Chloride Total Bilirubin Urine Bilirubin Urine Urobilinogen Ur Leukocyte Esterase Salicylates Acetaminophen < 10 L - EKG Interpretation by Me Additional EKG results interpreted by me: 08/20/18 23:03 Sinus rhythm. Rate 90. NM 148; QRS 84; QT 352; QTc 431. No ST elevations or depressions noted. No previous EKG for comparison. (JUSTIN FRAUSTO) Discharge <JUSTIN FRAUSTO - Last Filed: 08/21/18 05:31> <RAGINI MORALES - Last Filed: 08/21/18 10:21> <JERRY JIMENEZ - Last Filed: 08/21/18 10:38> - Discharge Clinical Impression: Suicidal ideation Drug overdose, intentional Qualifiers: Encounter type: initial encounter Qualified Code(s): T50.902A - Poisoning by unspecified drugs, medicaments and biological substances, intentional self-harm, initial encounter Condition: Stable Disposition: HOME, SELF-CARE Additional Instructions: You have been evaluated by both medical and behavioral health providers while in the emergency department. You have been cleared from both acute medical and psychiatric services. You denied current suicidal ideation and stated you don't want to hurt or kill yourself but at times don't want to be here. Your parents are natural supports and you are being linked to new professional supports. You are being provided prescriptions for a new medication regimen which should be taken as directed. Overdose: You have taken more medication than you should have. After your evaluation and care, it is felt that your overdose is not likely to be harmful or of any significant consequences to you and you are being discharged. In the future, you should be careful not to take more medications than what is prescribed for you. Although your overdose does not seem to be of any danger to you at this time, if you develop any unusual or unexpected symptoms after your discharge, you should return to the Emergency Department immediately for re-evaluation. DEPRESSION: Your evaluation reveals that you have mental depression. While symptoms may be vague, they often include disturbance of sleep, fatigue, loss of appetite, and general loss of interest in life. While depression may be a side effect of drugs, or a reaction to a major change in your life, many cases have no known cause. If depression is acute, and related to a major loss in your life, you can expect it to clear completely with time. If you have been depressed a long ti me, are prone to repeated bouts of depression or low mood, or have been thinking of suicide, get help. Depression can be treated with anti-depressant medication and counselling. Long-term depression will often take a few weeks to clear, even with appropriate medication. Follow-up care is important. SUICIDAL IDEATION: Suicidal ideation is a common medical term for thoughts about suicide, which may be as detailed as a formulated plan, without the suicidal act itself. Although most people who undergo suicidal ideation do not commit suicide, some go on to make suicide attempts. The range of suicidal ideation varies greatly from fleeting to detailed planning, role playing, and unsuccessful attempts. While thoughts about suicide are common, most people do not carry out serious actions to commit suicide. Based upon your evaluation and discussion with you, we do not believe you are currently at risk to act upon your thoughts of suicide. You have agreed to return to the Emergency Department, at any time, if you feel inclined to act upon your suicidal thoughts. FOLLOW-UP CARE: You are being prescribed a new medication regimen which is: Effexor 37.5MG daily for depression/increase energy/focus and Buspar 5MG twice a day for anxiety/calming effect/depression/sleep. You should take these medications as prescribed. Your parents have agreed to be in charge of medications and administrations. You have outpatient follow up scheduled with deepa [facility] on 08/22/18 at 0800 for therapy and 08/29/18 at 1015 for medication management. If you experience worsening or a significant change in your symptoms, notify the physician immediately, utilize mobile crisis or return to the Emergency Department at any time for re-evaluation. Prescriptions: Buspirone HCl [Buspar 5 mg Tablet] 1 tab PO BID #60 tab Venlafaxine HCl ER [Effexor Xr 37.5 mg Cap.sr] 37.5 mg PO DAILY #30 cap.sr.24h Referrals: [facility] [Provider Group] - 08/22/18 8:00 am (The 08/22/18 at 0800 appointment is for therapy. The 08/29/18 at 1015 is for medication managment.) [facility] [Outside] - Follow up as needed ARTI DICKERSON PA-C [Primary Care Provider] - Follow up as needed
[2018-08-21 00:03] LABS: ABSOLUTE EOSINOPHILS # (AUTO) 0.2 10^3/uL (0.0-0.6); ABSOLUTE LYMPHOCYTES (AUTO) 1.7 10^3/uL (0.5-4.7); ABSOLUTE MONOCYTES (AUTO) 0.4 10^3/uL (0.1-1.4); ABSOLUTE NEUT (AUTO) 5.9 10^3/uL (1.7-8.2); BASOPHILS % (AUTO) 0.5 % (0-2); HEMATOCRIT 35.8 % (36.0-47.0); HEMOGLOBIN 11.7 g/dL (12.0-15.5); LYMPHOCYTES % (AUTO) 20.2 % (13-45); MEAN CORPUSCULAR HEMOGLOBIN 26.4 pg (27.0-33.4); MEAN CORPUSCULAR HGB CONC 32.7 g/dL (32.0-36.0); MEAN CORPUSCULAR VOLUME 81 fl (80-97); MONOCYTES % (AUTO) 4.5 % (3-13); PLATELET COUNT 267 10^3/uL (150-450); RED BLOOD COUNT 4.45 10^6/uL (3.72-5.28); SEGMENTED NEUTROPHILS % (AUTO) 72.8 % (42-78); TOTAL CELLS COUNTED % (AUTO) 100 %; WHITE BLOOD COUNT 8.2 10^3/uL (4.0-10.5)
[2018-08-21 00:22] LABS: APPEARANCE,URINE SLIGHTLY-CLOUDY; BILIRUBIN,URINE SMALL (NEGATIVE); COLOR,URINE YELLOW; GLUCOSE, URINE NEGATIVE (NEGATIVE); KETONES,URINE NEGATIVE (NEGATIVE); LEUKOCYTE ESTERASE,URINE TRACE (NEGATIVE); NITRITE,URINE NEGATIVE (NEGATIVE); PROTEIN,URINE NEGATIVE (NEGATIVE); URINE SPECIFIC GRAVITY 1.019
[2018-08-21 00:42] LABS: ACETAMINOPHEN < 10 ug/mL (10-30); ALANINE AMINOTRANSFERASE 21 U/L (9-52); ALBUMIN 3.8 g/dL (3.5-5.0); ALCOHOL < 10 mg/dL (NONE DETECTED); ALKALINE PHOSPHATASE 71 U/L (38-126); ANION GAP 7 (5-19); ASPARTATE AMINO TRANSFERASE 18 U/L (14-36); BILIRUBIN,DIRECT 0.1 mg/dL (0.0-0.4); BILIRUBIN,TOTAL 0.1 mg/dL (0.2-1.3); BLOOD UREA NITROGEN 16 mg/dL (7-20); CALCIUM 9.2 mg/dL (8.4-10.2); CARBON DIOXIDE 24 mmol/L (22-30); CHLORIDE 109 mmol/L (98-107); GLUCOSE 108 mg/dL (75-110); POTASSIUM 3.6 mmol/L (3.6-5.0); SALICYLATE < 1.0 mg/dL (2.0-20.0); SODIUM 140.3 mmol/L (137-145); TOTAL PROTEIN 6.7 g/dL (6.3-8.2)
[2018-08-21 00:49] LABS: URINE AMPHETAMINES SCREEN NEGATIVE; URINE BARBITURATES SCREEN NEGATIVE; URINE BENZODIAZEPINES SCREEN NEGATIVE; URINE COCAINE SCREEN NEGATIVE; URINE MARIJUANA (THC) SCREEN NEGATIVE; URINE METHADONE SCREEN NEGATIVE; URINE PHENCYCLIDINE SCREEN NEGATIVE
--- NOTE | 2018-08-21 01:08 | EKG REPORT ---
SEVERITY:- NORMAL ECG - SINUS RHYTHM : Confirmed by: Liz Ac MD 21-Aug-2018 01:06:44
--- NOTE | 2018-08-21 09:27 | ER Document Report ---
Doctor's Note Notes: 08/21/18 09:26 Patient seen and examined. She was admitted after overdose of melatonin. Patient states that she is no longer actively suicidal. She admits that she goes to a "dark place." She states sometimes she feels that she is a burden, but realizes she has good support plan. She states she has not been very compl iant with the Zoloft. She states that she does not think it was working well anyway. She states perhaps "a higher dosage." She feels comfortable with the idea of discharge, parents are here for support. Chart reviewed. Physical exam reveals a pleasant 22-year-old female in no acute distress. Is normocephalic atraumatic. Heart is regular rate and rhythm, lungs are clear to all station bilaterally. Patient is cooperative with examiner, mildly depressed affect but pleasant. Plan will likely be to discharge, will include parents in discussion.
--- NOTE | 2018-08-21 10:20 | PSYCHOLOGICAL NOTE ---
Psych Note - Psych Note Date seen by psych provider: 08/21/18 Psych Note: Presenting Problem: Melatonin OD Diagnosis: Unspecified Depressive Disorder Unspecified Anxiety Disorder Medication recommendations made by the psychiatric medical provider, Dr. Kanu MD., includes: Discontinue Zoloft 50MG daily Add Effexor 37.5MG daily for depression/energy/focus Add Buspar 5MG twice a day for anxiety/calming effect/depression/sleep Impression/Plan: Patient is cleared from acute psychiatric services. Recommendation to rescind 24 Hour IVC Petition (not valid: reason not filled out and not notarized). Patient denied current SI/HI, acknowledged she gets into a dark place at times and has thoughts of not wanting to be here, denied wanting to hurt or kill self, admitted to Hx of SIB via cutting for relief not to kill self. She admitted to not taking Zoloft or going to therapy both at [place]. She admitted to 3 previous hospitalizations at [facility], last time age 13. Parents at bedside and natural supports. They agreed to lock up all medications and be in charge of patient's medications/administration. Patient agreed to be linked to a new provider for medication and therapy. Scheduled outpatient follow up at [facility] for 08/22/18 at 0800 for therapy and 08/29/18 at 1015 for medication management. Provided patient with the outpatient MH resource sheet which documented appointment dates and times, as well as highlighted [facility] for crisis/talk therapy. Consulted with Dr. Sandoval regarding the management and care of patient. ED Physician in agreement with recommendations.
[2018-08-21 10:48] VITALS: BP 131/79
== END 2018-08-21 10:48 | disposition home or self-care (01) ==
LOC: ER 22:49
DX: T65.892A Toxic effect of other specified substances, intentional self-harm, initial encounter (principal); X58.XXXA Exposure to other specified factors, initial encounter; R45.851 Suicidal ideations; Z88.3 Allergy status to other anti-infective agents; Z87.442 Personal history of urinary calculi
CPT/HCPCS: 36415; 80053; 80307; 81001; 84703; 85025; 93005; 93010; 99285

== ENCOUNTER 2019-01-27 20:48 | Emergency (ER) | payer SELFPAY ==
[2019-01-27] MEDS ORDERED: IBUPROFEN 800 MG TABLET PO ONE (21:17)
[2019-01-27] MEDS ORDERED: ONDANSETRON 4 MG TAB.RAPDIS PO ONE (21:17)
--- NOTE | 2019-01-27 21:19 | ER Document Report ---
ED Medical Screen (RME) - General Stated Complaint: SORE THROAT Time Seen by Provider: 01/27/19 21:13 Primary Care Provider: ARTI DICKERSON PA-C [Primary Care Provider] - Follow up as needed Notes: Patient presents complaining of cough and sore throat for the past week. Patient reports subjective fever with nausea and vomiting. Patient has had hemoptysis. I have greeted and performed a rapid initial assessment of this patient. A comprehensive ED assessment and evaluation of the patient, analysis of test results and completion of the medical decision making process will be conducted by additional ED providers. TRAVEL OUTSIDE OF THE [place] IN LAST 30 DAYS: No - Related Data Allergies/Adverse Reactions: vancomycin Allergy (Verified 07/12/18 08:26) Past Medical History Renal/ Medical History: Reports: Hx Kidney Stones. Denies: Hx Peritoneal Dialysis Psychiatric Medical History: Reports: Hx Anxiety, Hx Depression - on prozac - Immunizations Immunizations up to date: Yes Physical Exam - Vital signs Vitals: Temp Pulse Resp BP Pulse Ox 99.0 F 96 20 135/77 H 99 01/27/19 20:57 01/27/19 20:57 01/27/19 20:57 01/27/19 20:57 01/27/19 20:57 - HEENT Pharynx: No: Erythema, Exudate, Uvular edema, Potential airway comprom. - Respiratory Respiratory status: No respiratory distress Breath sounds: Nonproductive cough. No: Rales, Rhonchi, Stridor, Wheezing Course - Vital Signs Vital signs: Temp Pulse Resp BP Pulse Ox 99.0 F 96 20 135/77 H 99 01/27/19 20:57 01/27/19 20:57 01/27/19 20:57 01/27/19 20:57 01/27/19 20:57 Doctor's Discharge - Discharge Referrals: ARTI DICKERSON PA-C [Primary Care Provider] - Follow up as needed
--- NOTE | 2019-01-27 22:35 | RADIOLOGY REPORT (SQ) ---
EXAM DESCRIPTION: XR CHEST 2 VIEWS COMPLETED DATE/TME: 01/27/2019 21:17 CLINICAL HISTORY: 23 years, Female, cough EXAM DESCRIPTION: CLINICAL HISTORY: cough COMPARISON: None. FINDINGS: Two views of the chest are submitted. There is bilateral peribronchial cuffing. Cardiac silhouette appears normal. No focal parenchymal or pleural disease. No acute bony abnormality. There is no significant pulmonary vascular engorgement. IMPRESSION: Findings suggest viral illness.
--- NOTE | 2019-01-28 01:45 | ER Document Report ---
HPI - HPI Time Seen by Provider: 01/27/19 21:13 Pain Level: 3 Context: 23-year-old healthy female presents the emergency department with chief complaint of a cough. Patient states that the cough is productive but she cannot qualify if it is gross hematemesis or blood-tinged sputum. Patient denies fevers or chills, does complain of headache, does complain of body aches. Denies stiff neck. Denies any shortness of breath or chest pain, denies wheezing. Denies nausea/vomiting/diarrhea/constipation. - CONSTITUTIONAL Constitutional: DENIES: Fever, Chills - EENT EENT: REPORTS: Sore Throat - CARDIOVASCULAR Cardiovascular: DENIES: Chest pain - RESPIRATORY Respiratory: REPORTS: Coughing. DENIES: Trouble Breathing - REPRODUCTIVE Reproductive: DENIES: : Past Medical History - Social History Smoking Status: Unknown if Ever Smoked Family History: None Patient has suicidal ideation: No Patient has homicidal ideation: No Renal/ Medical History: Reports: Hx Kidney Stones. Denies: Hx Peritoneal Dialysis Psychiatric Medical History: Reports: Hx Anxiety, Hx Depression - on prozac - Immunizations Immunizations up to date: Yes Vertical Provider Document - CONSTITUTIONAL Notes: PHYSICAL EXAMINATION: Reviewed vital signs and charting by RN GENERAL: Alert, interacts well. No acute distress. HEAD: Normocephalic, atraumatic. EYES: Pupils equal and round. Extraocular movements intact. ENT: Oral mucosa moist, tongue midline. NECK: Full range of motion. Trachea midline. LUNGS: Clear to auscultation bilaterally, no wheezes, rales, or rhonchi. No respiratory distress. HEART: Regular rate and rhythm. No murmur ABDOMEN: soft, non-tender. No distention. Bowel sounds present EXTREMITIES: Moves all 4 extremities spontaneously. No edema, No cyanosis. PSYCH: Normal affect, normal mood. SKIN: Warm, dry, normal turgor. No rashes or lesions noted. - INFECTION CONTROL TRAVEL OUTSIDE OF THE [place] IN LAST 30 DAYS: No Course - Re-evaluation Re-evalutation: 01/28/19 01:47 Presentation is most consistent with a viral upper respiratory infection. Patient is overall well appearance, vitals within normal limits, well-hydrated. Patient denies any headache, neck pain, and has no evidence of meningismus on examination. Lungs are clear bilaterally. No evidence of respiratory distress. Based on clinical exam and history, I do not suspect an acute pneumonia, meningitis, strep pharyngitis, or an acute encephalitis. Negative strep and normal chest x-ray. Will discharge patient with return precautions and followup recommendations. They are in agreement this plan have verbalized understanding return precautions. - Vital Signs Vital signs: Temp Pulse Resp BP Pulse Ox 99.0 F 96 20 135/77 H 99 01/27/19 20:57 01/27/19 20:57 01/27/19 20:57 01/27/19 20:57 01/27/19 20:57 Discharge - Discharge Clinical Impression: Cough Upper respiratory infection Qualifiers: URI type: unspecified viral URI Qualified Code(s): J06.9 - Acute upper respiratory infection, unspecified Condition: Good Disposition: HOME, SELF-CARE Additional Instructions: You have been seen and treated in the emergency department for an upper respiratory infection. These are typically caused by viruses and do not respond to antibiotics. Please also continue to take [id number] Tylenol and Motrin for your generalized body aches, fever. Please stay well-hydrated and get plenty of rest. Please follow-up with your primary care provider in the next 48 - 72 hours. Please return to the emergency room should you have any other concerning symptoms. Forms: Return to Work Referrals: ARTI DICKERSON PA-C [Primary Care Provider] - Follow up as needed
[2019-01-28 02:32] VITALS: BP 132/76
== END 2019-01-28 01:40 | disposition home or self-care (01) ==
LOC: ER 20:48
DX: J06.9 Acute upper respiratory infection, unspecified (principal); Z87.442 Personal history of urinary calculi
CPT/HCPCS: 99283; 87070; 87880; 71046; S0119

== ENCOUNTER 2019-06-22 18:18 | Emergency (ER) | payer SELFPAY ==
[2019-06-22] MEDS ORDERED: PENICILLIN G BENZATHINE 1.2 MILLION UNIT/2 ML DISP.SYRIN IM ONE ×2 (20:02→20:20)
[2019-06-22] MEDS ORDERED: PREDNISONE 20 MG TABLET PO ONE (20:02)
[2019-06-22] MEDS ORDERED: BENZONATATE 100 MG CAPSULE PO ONE (20:02)
--- NOTE | 2019-06-22 20:06 | ER Document Report ---
HPI - HPI Time Seen by Provider: 06/22/19 19:40 Pain Level: 2 Notes: 23-year-old female patient presenting to the emergency department complaint of sinus drainage, sinus pressure, sinus pain, fever and swollen tonsils. Patient reports that she gets swollen tonsils with exudates every time she gets really sick. She does report a history of strep. Denies any recent travel or contact with any COVID-19 positive persons. Denies any nausea, vomiting, diarrhea. - CONSTITUTIONAL Constitutional: DENIES: Fever, Chills - REPRODUCTIVE Reproductive: DENIES: : Past Medical History - General Information source: Patient - Social History Smoking Status: Current Some Day Smoker Chew tobacco use (# tins/day): No Frequency of alcohol use: Occasional Family History: None Patient has suicidal ideation: No Patient has homicidal ideation: No Renal/ Medical History: Reports: Hx Kidney Stones. Denies: Hx Peritoneal Dialysis Psychiatric Medical History: Reports: Hx Anxiety, Hx Depression - on prozac - Immunizations Immunizations up to date: Yes Vertical Provider Document - CONSTITUTIONAL Notes: PHYSICAL EXAMINATION: GENERAL: Well-appearing, well-nourished and in no acute distress. HEAD: Atraumatic, normocephalic. EYES: Pupils equal round and reactive to light, extraocular movements intact, conjunctiva are normal. ENT: Nares patent, oropharynx erythematous with tonsillar swelling and exudates, uvula midline, no evidence of peritonsillar abscess.. Moist mucous membranes. Tenderness to palpation over the frontal and maxillary sinuses. NECK: Normal range of motion, supple without lymphadenopathy LUNGS: Breath sounds clear to auscultation bilaterally and equal. No wheezes rales or rhonchi. HEART: Regular rate and rhythm without murmurs ABDOMEN: Soft, nontender, nondistended abdomen. No guarding, no rebound. No masses appreciated. Female : deferred Musculoskeletal: Normal range of motion, no pitting or edema. No cyanosis. NEUROLOGICAL: Cranial nerves grossly intact. Normal speech, normal gait. Normal sensory, motor exams PSYCH: Normal mood, normal affect. SKIN: Warm, Dry, normal turgor, no rashes or lesions noted. - INFECTION CONTROL TRAVEL OUTSIDE OF THE [place] IN LAST 30 DAYS: No Course - Re-evaluation Re-evalutation: Patient's examination is consistent with both sinusitis as well as pharyngitis. Patient will be treated in the emergency department with IM penicillin. She will also be prescribed steroids and Tessalon Perles. Patient is in agreement with this plan. Patient will continue taking Tylenol or ibuprofen for any fever or body aches. ED return precautions discussed, patient verbalized understanding and agreement. - Vital Signs Vital signs: Temp Pulse Resp BP Pulse Ox 100.0 F 99 18 141/73 H 98 06/22/19 18:29 06/22/19 18:29 06/22/19 18:29 06/22/19 18:29 06/22/19 18:29 Discharge - Discharge Clinical Impression: Sore throat, Tonsillar exudate Sinusitis Qualifiers: Sinusitis location: unspecified location Chronicity: acute Recurrence: non- recurrent Qualified Code(s): J01.90 - Acute sinusitis, unspecified Condition: Stable Disposition: HOME, SELF-CARE Additional Instructions: You were seen in the emergency department today with multiple symptoms of sinus infection as well as sore throat. You were given an antibiotic shot here in the emergency department. Take other medications as prescribed. You may also safely take Tylenol or ibuprofen. Drink plenty of fluids. Return to the emergency department with new or worsening symptoms such as difficulty breathing, shortness of breath or inability to swallow. Prescriptions: Benzonatate [Tessalon Perles 100 mg Capsule] 2 tab PO [id number] PRN #40 capsule PRN Reason: Prednisone [Deltasone 20 mg Tablet] 3 tab PO DAILY 4 Days #12 tablet Referrals: ARTI DICKERSON PA-C [Primary Care Provider] - Follow up as needed
[2019-06-22 21:01] VITALS: BP 124/69
== END 2019-06-22 20:55 | disposition home or self-care (01) ==
LOC: ER 18:18
DX: J01.90 Acute sinusitis, unspecified (principal); J02.9 Acute pharyngitis, unspecified; F17.200 Nicotine dependence, unspecified, uncomplicated; Z87.442 Personal history of urinary calculi
CPT/HCPCS: 99283; 96372; J0561; J7512